=== PATIENT | female | born 1970 | race Caucasian/White ===

== ENCOUNTER → 2017-09-06 | Outpatient (CLI) | payer OTHER ==
[~2017-09-06] MED LIST: AZIT500 PO; Aspirin EC81 MG PO; CLON2 PO; CODACE30; CYCL10 PO; DILT180; DIPH50 PO; DULO30; ESCI20 PO; FURO40; GUAI120S1 PO; HYDACE5 PO; IBUP400 PO; IBUP600 PO; LORA2 PO; MELA3 PO; NAPR500 PO; OMEP20ER PO; PENVK500; POTCHL20ER; PRENZ; Questran4 GM GT; XYZAL PO; Zithromax250 MG PO; [UNRECOGNIZED DRUG - OTHER] PO
== END ==
LOC: PLD 13:40 → LAB SHORT 13:40
DX: L91.8 Other hypertrophic disorders of the skin (principal)
CPT/HCPCS: 88305

== ENCOUNTER 2021-05-22 20:38 | Emergency (ER) | payer OTHER ==
[~2021-05-22] VITALS: Ht 162.6 cm; Wt 171.0 kg
[2021-05-22] MEDS ORDERED: CYCL10 PO (22:18)
[2021-05-22] MEDS ORDERED: LIDO700A20 TOP (22:18)
== END 2021-05-22 22:29 | disposition home or self-care (01) ==
LOC: ER 20:38
DX: S39.012A Strain of muscle, fascia and tendon of lower back, initial encounter (principal); M54.16 Radiculopathy, lumbar region; I10 Essential (primary) hypertension; G47.30 Sleep apnea, unspecified; Z79.82 Long term (current) use of aspirin; Z79.899 Other long term (current) drug therapy; X58.XXXA Exposure to other specified factors, initial encounter
CPT/HCPCS: 96372; 99283-25; J1885

== ENCOUNTER → 2022-01-15 | Outpatient (CLI) | payer OTHER ==
[~2022-01-15] MED LIST changes: +LIDO700A20 TOP
== END | disposition home or self-care (01) ==
LOC: LAB SHORT 12:15 → LAB 12:15
DX: L08.9 Local infection of the skin and subcutaneous tissue, unspecified (principal)
CPT/HCPCS: 87070; 87075; 87147; 87205

== ENCOUNTER 2022-02-02 10:51 | Day surgery (SDC) | payer OTHER | END 2022-02-02 23:16 | disposition home or self-care (01) | LOC: WOUND 10:51 | DX: L03.115 Cellulitis of right lower limb (principal); L03.116 Cellulitis of left lower limb; I87.313 Chronic venous hypertension (idiopathic) with ulcer of bilateral lower extremity; L97.822 Non-pressure chronic ulcer of other part of left lower leg with fat layer exposed; L97.812 Non-pressure chronic ulcer of other part of right lower leg with fat layer exposed; E66.01 Morbid (severe) obesity due to excess calories; E11.51 Type 2 diabetes mellitus with diabetic peripheral angiopathy without gangrene | CPT/HCPCS: A9270; G0463 ==

== ENCOUNTER 2022-02-04 08:43 | Day surgery (SDC) | payer OTHER | END 2022-02-04 22:58 | disposition home or self-care (01) | LOC: WOUND 08:43 | DX: L03.115 Cellulitis of right lower limb (principal); L03.116 Cellulitis of left lower limb; I87.313 Chronic venous hypertension (idiopathic) with ulcer of bilateral lower extremity; I73.9 Peripheral vascular disease, unspecified; L97.822 Non-pressure chronic ulcer of other part of left lower leg with fat layer exposed; L97.812 Non-pressure chronic ulcer of other part of right lower leg with fat layer exposed ==

== ENCOUNTER 2022-02-06 01:16 | Day surgery (SDC) | payer OTHER | END 2022-02-06 22:57 | disposition home or self-care (01) | LOC: WOUND | DX: I87.313 Chronic venous hypertension (idiopathic) with ulcer of bilateral lower extremity (principal); L97.822 Non-pressure chronic ulcer of other part of left lower leg with fat layer exposed; L97.812 Non-pressure chronic ulcer of other part of right lower leg with fat layer exposed; I73.9 Peripheral vascular disease, unspecified; L03.115 Cellulitis of right lower limb; L03.116 Cellulitis of left lower limb ==

== ENCOUNTER 2022-02-11 06:28 | Day surgery (SDC) | payer OTHER | END 2022-02-11 23:29 | disposition home or self-care (01) | LOC: WOUND 06:28 | DX: I87.313 Chronic venous hypertension (idiopathic) with ulcer of bilateral lower extremity (principal); L97.822 Non-pressure chronic ulcer of other part of left lower leg with fat layer exposed; L97.812 Non-pressure chronic ulcer of other part of right lower leg with fat layer exposed; I73.9 Peripheral vascular disease, unspecified; L03.115 Cellulitis of right lower limb; L03.116 Cellulitis of left lower limb | CPT/HCPCS: G0463 ==

== ENCOUNTER 2022-02-20 00:16 | Day surgery (SDC) | payer OTHER | END 2022-02-20 23:22 | disposition home or self-care (01) | LOC: WOUND | DX: L03.115 Cellulitis of right lower limb (principal); L03.116 Cellulitis of left lower limb; I87.313 Chronic venous hypertension (idiopathic) with ulcer of bilateral lower extremity; I73.9 Peripheral vascular disease, unspecified; L97.822 Non-pressure chronic ulcer of other part of left lower leg with fat layer exposed; L97.812 Non-pressure chronic ulcer of other part of right lower leg with fat layer exposed ==

== ENCOUNTER 2022-03-06 14:50 | Day surgery (SDC) | payer OTHER | END 2022-03-07 00:31 | disposition home or self-care (01) | LOC: WOUND 14:50 | DX: I87.313 Chronic venous hypertension (idiopathic) with ulcer of bilateral lower extremity (principal); L97.822 Non-pressure chronic ulcer of other part of left lower leg with fat layer exposed; L97.812 Non-pressure chronic ulcer of other part of right lower leg with fat layer exposed; L03.115 Cellulitis of right lower limb; L03.116 Cellulitis of left lower limb; I73.9 Peripheral vascular disease, unspecified ==

== ENCOUNTER 2022-03-09 00:57 | Day surgery (SDC) | payer OTHER | END 2022-03-09 22:56 | disposition home or self-care (01) | LOC: WOUND 00:57 | DX: I87.313 Chronic venous hypertension (idiopathic) with ulcer of bilateral lower extremity (principal); E11.622 Type 2 diabetes mellitus with other skin ulcer; L97.822 Non-pressure chronic ulcer of other part of left lower leg with fat layer exposed; L97.812 Non-pressure chronic ulcer of other part of right lower leg with fat layer exposed; L03.116 Cellulitis of left lower limb; L03.115 Cellulitis of right lower limb; I73.9 Peripheral vascular disease, unspecified; E66.01 Morbid (severe) obesity due to excess calories; G47.30 Sleep apnea, unspecified; Z68.44 Body mass index [BMI] 60.0-69.9, adult | CPT/HCPCS: G0463 ==

== ENCOUNTER 2022-03-13 12:58 | Day surgery (SDC) | payer OTHER | END 2022-03-13 23:59 | disposition home or self-care (01) | LOC: WOUND 12:58 | DX: I87.313 Chronic venous hypertension (idiopathic) with ulcer of bilateral lower extremity (principal); L97.822 Non-pressure chronic ulcer of other part of left lower leg with fat layer exposed; L97.812 Non-pressure chronic ulcer of other part of right lower leg with fat layer exposed; L03.115 Cellulitis of right lower limb; L03.116 Cellulitis of left lower limb; I73.9 Peripheral vascular disease, unspecified ==

== ENCOUNTER 2022-03-18 13:31 | Day surgery (SDC) | payer OTHER | END 2022-03-18 22:53 | disposition home or self-care (01) | LOC: WOUND 13:31 | DX: I87.313 Chronic venous hypertension (idiopathic) with ulcer of bilateral lower extremity (principal); L97.822 Non-pressure chronic ulcer of other part of left lower leg with fat layer exposed; L97.812 Non-pressure chronic ulcer of other part of right lower leg with fat layer exposed; L03.115 Cellulitis of right lower limb; L03.116 Cellulitis of left lower limb; I73.9 Peripheral vascular disease, unspecified ==

== ENCOUNTER 2022-03-23 02:06 | Day surgery (SDC) | payer OTHER | END 2022-03-23 23:23 | disposition home or self-care (01) | LOC: WOUND 02:06 | DX: I87.313 Chronic venous hypertension (idiopathic) with ulcer of bilateral lower extremity (principal); L97.822 Non-pressure chronic ulcer of other part of left lower leg with fat layer exposed; L97.812 Non-pressure chronic ulcer of other part of right lower leg with fat layer exposed; L03.115 Cellulitis of right lower limb; L03.116 Cellulitis of left lower limb; I73.9 Peripheral vascular disease, unspecified | CPT/HCPCS: A9270 ==

== ENCOUNTER 2022-03-24 13:34 | Day surgery (SDC) | payer OTHER | END 2022-03-24 23:08 | disposition home or self-care (01) | LOC: WOUND 13:34 | DX: I87.313 Chronic venous hypertension (idiopathic) with ulcer of bilateral lower extremity (principal); L97.822 Non-pressure chronic ulcer of other part of left lower leg with fat layer exposed; L97.812 Non-pressure chronic ulcer of other part of right lower leg with fat layer exposed; L03.115 Cellulitis of right lower limb; L03.116 Cellulitis of left lower limb; I73.9 Peripheral vascular disease, unspecified | CPT/HCPCS: A9270 ==

== ENCOUNTER 2022-03-30 02:41 | Day surgery (SDC) | payer OTHER | END 2022-03-30 23:09 | disposition home or self-care (01) | LOC: WOUND 02:41 | DX: L03.116 Cellulitis of left lower limb (principal); L03.115 Cellulitis of right lower limb; L97.812 Non-pressure chronic ulcer of other part of right lower leg with fat layer exposed; L97.822 Non-pressure chronic ulcer of other part of left lower leg with fat layer exposed; I87.313 Chronic venous hypertension (idiopathic) with ulcer of bilateral lower extremity; E11.622 Type 2 diabetes mellitus with other skin ulcer; E66.01 Morbid (severe) obesity due to excess calories | CPT/HCPCS: G0463 ==

== ENCOUNTER 2022-04-06 00:36 | Day surgery (SDC) | payer OTHER | END 2022-04-06 22:47 | disposition home or self-care (01) | LOC: WOUND 00:36 | DX: E11.622 Type 2 diabetes mellitus with other skin ulcer (principal); I87.313 Chronic venous hypertension (idiopathic) with ulcer of bilateral lower extremity; L97.822 Non-pressure chronic ulcer of other part of left lower leg with fat layer exposed; L97.812 Non-pressure chronic ulcer of other part of right lower leg with fat layer exposed; L03.115 Cellulitis of right lower limb; L03.116 Cellulitis of left lower limb; I73.9 Peripheral vascular disease, unspecified; E66.9 Obesity, unspecified; G47.30 Sleep apnea, unspecified; Z68.44 Body mass index [BMI] 60.0-69.9, adult | CPT/HCPCS: A9270; G0463 ==

== ENCOUNTER 2022-04-13 02:59 | Day surgery (SDC) | payer OTHER | END 2022-04-13 22:55 | disposition home or self-care (01) | LOC: WOUND 02:59 | DX: E11.622 Type 2 diabetes mellitus with other skin ulcer (principal); L97.812 Non-pressure chronic ulcer of other part of right lower leg with fat layer exposed; L97.822 Non-pressure chronic ulcer of other part of left lower leg with fat layer exposed; L03.115 Cellulitis of right lower limb; L03.116 Cellulitis of left lower limb; I87.313 Chronic venous hypertension (idiopathic) with ulcer of bilateral lower extremity; E66.01 Morbid (severe) obesity due to excess calories; G47.30 Sleep apnea, unspecified; E11.51 Type 2 diabetes mellitus with diabetic peripheral angiopathy without gangrene; Z68.44 Body mass index [BMI] 60.0-69.9, adult | CPT/HCPCS: A9270; G0463 ==

== ENCOUNTER 2022-04-20 01:38 | Day surgery (SDC) | payer OTHER | END 2022-04-20 23:35 | disposition home or self-care (01) | LOC: WOUND 01:38 | DX: L03.115 Cellulitis of right lower limb (principal); I87.2 Venous insufficiency (chronic) (peripheral); L97.812 Non-pressure chronic ulcer of other part of right lower leg with fat layer exposed; L97.822 Non-pressure chronic ulcer of other part of left lower leg with fat layer exposed; L03.116 Cellulitis of left lower limb; I87.313 Chronic venous hypertension (idiopathic) with ulcer of bilateral lower extremity; I73.9 Peripheral vascular disease, unspecified | CPT/HCPCS: A9270; G0463 ==

== ENCOUNTER 2022-07-17 07:36 | Day surgery (SDC) | payer OTHER | END 2022-07-18 22:44 | disposition home or self-care (01) | LOC: WOUND 07:36 | DX: I87.313 Chronic venous hypertension (idiopathic) with ulcer of bilateral lower extremity (principal); L97.822 Non-pressure chronic ulcer of other part of left lower leg with fat layer exposed; L97.812 Non-pressure chronic ulcer of other part of right lower leg with fat layer exposed; L03.115 Cellulitis of right lower limb; L03.116 Cellulitis of left lower limb | CPT/HCPCS: G0463 ==

== ENCOUNTER 2022-07-20 09:00 | Day surgery (SDC) | payer OTHER | END 2022-07-20 22:45 | disposition home or self-care (01) | LOC: WOUND 09:00 | DX: I87.313 Chronic venous hypertension (idiopathic) with ulcer of bilateral lower extremity (principal); L97.822 Non-pressure chronic ulcer of other part of left lower leg with fat layer exposed; L97.812 Non-pressure chronic ulcer of other part of right lower leg with fat layer exposed; L03.115 Cellulitis of right lower limb; L03.116 Cellulitis of left lower limb; I73.9 Peripheral vascular disease, unspecified | CPT/HCPCS: A9270; G0463 ==

== ENCOUNTER 2022-07-24 00:14 | Day surgery (SDC) | payer OTHER | END 2022-07-24 23:15 | disposition home or self-care (01) | LOC: WOUND 00:14 | DX: L03.115 Cellulitis of right lower limb (principal); L03.116 Cellulitis of left lower limb; I87.313 Chronic venous hypertension (idiopathic) with ulcer of bilateral lower extremity; L97.812 Non-pressure chronic ulcer of other part of right lower leg with fat layer exposed; L97.822 Non-pressure chronic ulcer of other part of left lower leg with fat layer exposed; I73.9 Peripheral vascular disease, unspecified ==

== ENCOUNTER 2022-07-31 01:51 | Day surgery (SDC) | payer OTHER | END 2022-07-31 23:10 | disposition home or self-care (01) | LOC: WOUND 01:51 | DX: I87.313 Chronic venous hypertension (idiopathic) with ulcer of bilateral lower extremity (principal); I73.9 Peripheral vascular disease, unspecified; L97.822 Non-pressure chronic ulcer of other part of left lower leg with fat layer exposed; L97.812 Non-pressure chronic ulcer of other part of right lower leg with fat layer exposed; L03.115 Cellulitis of right lower limb; L03.116 Cellulitis of left lower limb | CPT/HCPCS: A9270; G0463 ==

== ENCOUNTER 2023-01-08 01:01 | Day surgery (SDC) | payer OTHER ==
[~2023-01-08 01:01] MED LIST changes: +Robaxin750 MG PO
== END 2023-01-08 23:06 | disposition home or self-care (01) ==
LOC: WOUND 01:01
DX: L02.415 Cutaneous abscess of right lower limb (principal); E66.01 Morbid (severe) obesity due to excess calories; G47.00 Insomnia, unspecified; Z68.44 Body mass index [BMI] 60.0-69.9, adult; L03.115 Cellulitis of right lower limb; L03.116 Cellulitis of left lower limb; I87.313 Chronic venous hypertension (idiopathic) with ulcer of bilateral lower extremity; S81.801D Unspecified open wound, right lower leg, subsequent encounter; S81.802D Unspecified open wound, left lower leg, subsequent encounter; I87.2 Venous insufficiency (chronic) (peripheral); R60.0 Localized edema
CPT/HCPCS: A9270; G0463

== ENCOUNTER 2023-01-11 09:35 | Day surgery (SDC) | payer OTHER | END 2023-01-11 22:40 | disposition home or self-care (01) | LOC: WOUND 09:35 | DX: L03.116 Cellulitis of left lower limb (principal); I87.313 Chronic venous hypertension (idiopathic) with ulcer of bilateral lower extremity; S81.801D Unspecified open wound, right lower leg, subsequent encounter; S81.802D Unspecified open wound, left lower leg, subsequent encounter; L02.415 Cutaneous abscess of right lower limb; L03.115 Cellulitis of right lower limb; I87.2 Venous insufficiency (chronic) (peripheral); R60.0 Localized edema | CPT/HCPCS: A9270 ==

== ENCOUNTER 2023-01-13 02:36 | Day surgery (SDC) | payer OTHER | END 2023-01-13 23:08 | disposition home or self-care (01) | LOC: WOUND | DX: L02.415 Cutaneous abscess of right lower limb (principal); L03.116 Cellulitis of left lower limb; L03.115 Cellulitis of right lower limb; I87.313 Chronic venous hypertension (idiopathic) with ulcer of bilateral lower extremity; S81.801D Unspecified open wound, right lower leg, subsequent encounter; S81.802D Unspecified open wound, left lower leg, subsequent encounter; I87.2 Venous insufficiency (chronic) (peripheral); R60.0 Localized edema | CPT/HCPCS: A9270 ==

== ENCOUNTER 2023-01-15 00:37 | Day surgery (SDC) | payer OTHER | END 2023-01-15 22:52 | disposition home or self-care (01) | LOC: WOUND 00:37 | DX: L02.415 Cutaneous abscess of right lower limb (principal); L03.116 Cellulitis of left lower limb; L03.115 Cellulitis of right lower limb; I87.313 Chronic venous hypertension (idiopathic) with ulcer of bilateral lower extremity; S81.801D Unspecified open wound, right lower leg, subsequent encounter; S81.802D Unspecified open wound, left lower leg, subsequent encounter; X58.XXXD Exposure to other specified factors, subsequent encounter; I87.2 Venous insufficiency (chronic) (peripheral); R60.0 Localized edema; E66.01 Morbid (severe) obesity due to excess calories; G47.30 Sleep apnea, unspecified; E11.9 Type 2 diabetes mellitus without complications | CPT/HCPCS: A9270; G0463 ==

== ENCOUNTER 2023-01-18 08:00 | Day surgery (SDC) | payer OTHER | END 2023-01-18 23:59 | disposition home or self-care (01) | LOC: WOUND 08:00 | DX: I87.313 Chronic venous hypertension (idiopathic) with ulcer of bilateral lower extremity (principal); L02.415 Cutaneous abscess of right lower limb; L03.116 Cellulitis of left lower limb; L03.115 Cellulitis of right lower limb; S81.801D Unspecified open wound, right lower leg, subsequent encounter; S81.802D Unspecified open wound, left lower leg, subsequent encounter; X58.XXXD Exposure to other specified factors, subsequent encounter | CPT/HCPCS: G0463 ==

== ENCOUNTER 2023-01-20 05:01 | Day surgery (SDC) | payer OTHER | END 2023-01-20 22:44 | disposition home or self-care (01) | LOC: WOUND 05:01 | DX: L02.415 Cutaneous abscess of right lower limb (principal); E66.01 Morbid (severe) obesity due to excess calories; Z68.44 Body mass index [BMI] 60.0-69.9, adult; I87.313 Chronic venous hypertension (idiopathic) with ulcer of bilateral lower extremity; S81.801D Unspecified open wound, right lower leg, subsequent encounter; S81.802D Unspecified open wound, left lower leg, subsequent encounter; I87.2 Venous insufficiency (chronic) (peripheral); R60.0 Localized edema | CPT/HCPCS: G0463 ==

== ENCOUNTER 2023-01-22 02:23 | Day surgery (SDC) | payer OTHER | END 2023-01-22 22:59 | disposition home or self-care (01) | LOC: WOUND 02:23 | DX: S81.801D Unspecified open wound, right lower leg, subsequent encounter (principal) | CPT/HCPCS: G0463 ==

== ENCOUNTER 2023-01-25 00:46 | Day surgery (SDC) | payer OTHER | END 2023-01-25 22:45 | disposition home or self-care (01) | LOC: WOUND 00:46 | DX: I87.313 Chronic venous hypertension (idiopathic) with ulcer of bilateral lower extremity (principal); S81.801D Unspecified open wound, right lower leg, subsequent encounter; S81.802D Unspecified open wound, left lower leg, subsequent encounter; X58.XXXD Exposure to other specified factors, subsequent encounter; L02.415 Cutaneous abscess of right lower limb; L03.116 Cellulitis of left lower limb; L03.115 Cellulitis of right lower limb; I87.2 Venous insufficiency (chronic) (peripheral); R60.0 Localized edema | CPT/HCPCS: G0463 ==

== ENCOUNTER 2023-01-27 02:43 | Day surgery (SDC) | payer OTHER | END 2023-01-27 22:52 | disposition home or self-care (01) | LOC: WOUND 02:43 | DX: I87.313 Chronic venous hypertension (idiopathic) with ulcer of bilateral lower extremity (principal); S81.801D Unspecified open wound, right lower leg, subsequent encounter; S81.802D Unspecified open wound, left lower leg, subsequent encounter; L02.415 Cutaneous abscess of right lower limb; L03.116 Cellulitis of left lower limb; L03.115 Cellulitis of right lower limb; I87.2 Venous insufficiency (chronic) (peripheral); R60.0 Localized edema | CPT/HCPCS: G0463 ==

== ENCOUNTER 2023-02-01 01:35 | Day surgery (SDC) | payer OTHER | END 2023-02-01 22:53 | disposition home or self-care (01) | LOC: WOUND 01:35 | DX: S81.801D Unspecified open wound, right lower leg, subsequent encounter (principal); S81.802D Unspecified open wound, left lower leg, subsequent encounter; X58.XXXD Exposure to other specified factors, subsequent encounter; I87.313 Chronic venous hypertension (idiopathic) with ulcer of bilateral lower extremity; L02.415 Cutaneous abscess of right lower limb; L03.116 Cellulitis of left lower limb; L03.115 Cellulitis of right lower limb; I87.2 Venous insufficiency (chronic) (peripheral); R60.0 Localized edema | CPT/HCPCS: G0463 ==

== ENCOUNTER 2023-02-05 00:50 | Day surgery (SDC) | payer OTHER | END 2023-02-05 22:44 | disposition home or self-care (01) | LOC: WOUND 00:50 | DX: I87.313 Chronic venous hypertension (idiopathic) with ulcer of bilateral lower extremity (principal); L03.116 Cellulitis of left lower limb; L03.115 Cellulitis of right lower limb; L02.415 Cutaneous abscess of right lower limb; E66.01 Morbid (severe) obesity due to excess calories; G47.30 Sleep apnea, unspecified; E11.9 Type 2 diabetes mellitus without complications; L89.893 Pressure ulcer of other site, stage 3 | CPT/HCPCS: A9270; G0463 ==

== ENCOUNTER 2023-02-24 04:44 | Day surgery (SDC) | payer OTHER | END 2023-02-24 22:57 | disposition home or self-care (01) | LOC: WOUND 04:44 | DX: L89.893 Pressure ulcer of other site, stage 3 (principal); I87.313 Chronic venous hypertension (idiopathic) with ulcer of bilateral lower extremity; S81.801D Unspecified open wound, right lower leg, subsequent encounter; S81.802D Unspecified open wound, left lower leg, subsequent encounter; L02.415 Cutaneous abscess of right lower limb; L03.116 Cellulitis of left lower limb; L03.115 Cellulitis of right lower limb; I87.2 Venous insufficiency (chronic) (peripheral); R60.0 Localized edema | CPT/HCPCS: A9270; G0463 ==

== ENCOUNTER 2023-03-04 03:03 | Day surgery (SDC) | payer OTHER | END 2023-03-04 23:05 | disposition home or self-care (01) | LOC: WOUND 03:03 | DX: I87.313 Chronic venous hypertension (idiopathic) with ulcer of bilateral lower extremity (principal); L97.929 Non-pressure chronic ulcer of unspecified part of left lower leg with unspecified severity; L97.919 Non-pressure chronic ulcer of unspecified part of right lower leg with unspecified severity; S81.801D Unspecified open wound, right lower leg, subsequent encounter; S81.802D Unspecified open wound, left lower leg, subsequent encounter; L02.415 Cutaneous abscess of right lower limb; L03.116 Cellulitis of left lower limb; L03.115 Cellulitis of right lower limb; I87.2 Venous insufficiency (chronic) (peripheral); R60.0 Localized edema; X58.XXXD Exposure to other specified factors, subsequent encounter | CPT/HCPCS: 87070; 87077; 87147; 87186; 87205; A9270; G0463 ==

== ENCOUNTER 2023-03-12 00:27 | Day surgery (SDC) | payer OTHER | END 2023-03-12 22:47 | disposition home or self-care (01) | LOC: WOUND 00:27 | DX: L03.116 Cellulitis of left lower limb (principal); L03.115 Cellulitis of right lower limb; I87.313 Chronic venous hypertension (idiopathic) with ulcer of bilateral lower extremity; S81.801D Unspecified open wound, right lower leg, subsequent encounter; S81.802D Unspecified open wound, left lower leg, subsequent encounter; L02.415 Cutaneous abscess of right lower limb; I87.2 Venous insufficiency (chronic) (peripheral); R60.0 Localized edema | CPT/HCPCS: A9270; G0463 ==

== ENCOUNTER 2023-03-19 02:26 | Day surgery (SDC) | payer OTHER | END 2023-03-19 22:43 | disposition home or self-care (01) | LOC: WOUND 02:26 | DX: L03.116 Cellulitis of left lower limb (principal); L03.115 Cellulitis of right lower limb; I87.313 Chronic venous hypertension (idiopathic) with ulcer of bilateral lower extremity; S81.801D Unspecified open wound, right lower leg, subsequent encounter; S81.802D Unspecified open wound, left lower leg, subsequent encounter; L02.415 Cutaneous abscess of right lower limb; I87.2 Venous insufficiency (chronic) (peripheral); R60.0 Localized edema | CPT/HCPCS: A9270; G0463 ==

== ENCOUNTER 2023-03-26 05:06 | Day surgery (SDC) | payer OTHER | END 2023-03-26 22:40 | disposition home or self-care (01) | LOC: WOUND 05:06 | DX: I87.313 Chronic venous hypertension (idiopathic) with ulcer of bilateral lower extremity (principal); E66.01 Morbid (severe) obesity due to excess calories; G47.30 Sleep apnea, unspecified; L03.116 Cellulitis of left lower limb; L03.115 Cellulitis of right lower limb; L02.415 Cutaneous abscess of right lower limb | CPT/HCPCS: A9270; G0463 ==

== ENCOUNTER 2023-04-02 03:04 | Day surgery (SDC) | payer OTHER | END 2023-04-02 23:10 | disposition home or self-care (01) | LOC: WOUND 03:04 | DX: I87.313 Chronic venous hypertension (idiopathic) with ulcer of bilateral lower extremity (principal); S81.801D Unspecified open wound, right lower leg, subsequent encounter; S81.802D Unspecified open wound, left lower leg, subsequent encounter; L02.415 Cutaneous abscess of right lower limb; L03.116 Cellulitis of left lower limb; L03.115 Cellulitis of right lower limb; I87.2 Venous insufficiency (chronic) (peripheral); R60.0 Localized edema | CPT/HCPCS: A9270; G0463 ==

== ENCOUNTER 2023-04-09 04:50 | Day surgery (SDC) | payer OTHER | END 2023-04-09 22:50 | disposition home or self-care (01) | LOC: WOUND 04:50 | DX: I87.313 Chronic venous hypertension (idiopathic) with ulcer of bilateral lower extremity (principal); L97.919 Non-pressure chronic ulcer of unspecified part of right lower leg with unspecified severity; L97.929 Non-pressure chronic ulcer of unspecified part of left lower leg with unspecified severity; L02.415 Cutaneous abscess of right lower limb; S81.801D Unspecified open wound, right lower leg, subsequent encounter; S81.802D Unspecified open wound, left lower leg, subsequent encounter; L03.115 Cellulitis of right lower limb; R60.0 Localized edema; E11.9 Type 2 diabetes mellitus without complications; G47.30 Sleep apnea, unspecified; E66.01 Morbid (severe) obesity due to excess calories; Z68.45 Body mass index [BMI] 70 or greater, adult; X58.XXXD Exposure to other specified factors, subsequent encounter | CPT/HCPCS: A9270 ==

== ENCOUNTER 2023-04-16 01:49 | Day surgery (SDC) | payer OTHER | END 2023-04-16 22:46 | disposition home or self-care (01) | LOC: WOUND 01:49 | DX: L03.116 Cellulitis of left lower limb (principal); L03.115 Cellulitis of right lower limb; I89.0 Lymphedema, not elsewhere classified; I87.313 Chronic venous hypertension (idiopathic) with ulcer of bilateral lower extremity; S81.801D Unspecified open wound, right lower leg, subsequent encounter; L02.415 Cutaneous abscess of right lower limb; I87.2 Venous insufficiency (chronic) (peripheral); R60.0 Localized edema | CPT/HCPCS: A9270; G0463 ==

== ENCOUNTER 2023-04-23 02:34 | Day surgery (SDC) | payer OTHER | END 2023-04-23 22:35 | disposition home or self-care (01) | LOC: WOUND 02:34 | DX: L02.415 Cutaneous abscess of right lower limb (principal); S81.801D Unspecified open wound, right lower leg, subsequent encounter; S81.802D Unspecified open wound, left lower leg, subsequent encounter; S71.109A Unspecified open wound, unspecified thigh, initial encounter; R60.0 Localized edema; I83.009 Varicose veins of unspecified lower extremity with ulcer of unspecified site | CPT/HCPCS: A9270; G0463 ==

== ENCOUNTER 2023-04-28 11:20 | Day surgery (SDC) | payer OTHER | END 2023-04-28 22:47 | disposition home or self-care (01) | LOC: WOUND 11:20 | DX: L03.116 Cellulitis of left lower limb (principal); L03.115 Cellulitis of right lower limb; I89.0 Lymphedema, not elsewhere classified; L89.322 Pressure ulcer of left buttock, stage 2; L89.892 Pressure ulcer of other site, stage 2; S81.801D Unspecified open wound, right lower leg, subsequent encounter; S81.802D Unspecified open wound, left lower leg, subsequent encounter; S71.109A Unspecified open wound, unspecified thigh, initial encounter; L02.415 Cutaneous abscess of right lower limb; I87.2 Venous insufficiency (chronic) (peripheral) | CPT/HCPCS: 87070; 87077; 87186; 87205; A9270; G0463 ==

== ENCOUNTER 2023-05-07 03:53 | Day surgery (SDC) | payer OTHER | END 2023-05-07 22:50 | disposition home or self-care (01) | LOC: WOUND 03:53 | DX: I83.009 Varicose veins of unspecified lower extremity with ulcer of unspecified site (principal); L03.116 Cellulitis of left lower limb; E66.01 Morbid (severe) obesity due to excess calories; G47.30 Sleep apnea, unspecified; I89.0 Lymphedema, not elsewhere classified; L02.415 Cutaneous abscess of right lower limb | CPT/HCPCS: G0463 ==

== ENCOUNTER 2023-05-14 03:12 | Day surgery (SDC) | payer OTHER | END 2023-05-14 23:01 | disposition home or self-care (01) | LOC: WOUND 03:12 | DX: L03.116 Cellulitis of left lower limb (principal); I89.0 Lymphedema, not elsewhere classified; S81.801D Unspecified open wound, right lower leg, subsequent encounter; S81.802D Unspecified open wound, left lower leg, subsequent encounter; L02.415 Cutaneous abscess of right lower limb; I87.2 Venous insufficiency (chronic) (peripheral); R60.0 Localized edema; I83.009 Varicose veins of unspecified lower extremity with ulcer of unspecified site; S71.109D Unspecified open wound, unspecified thigh, subsequent encounter | CPT/HCPCS: A9270; G0463 ==

== ENCOUNTER 2023-05-21 03:57 | Day surgery (SDC) | payer OTHER | END 2023-05-21 22:42 | disposition home or self-care (01) | LOC: WOUND 03:57 | DX: L02.415 Cutaneous abscess of right lower limb (principal); S81.801D Unspecified open wound, right lower leg, subsequent encounter; S81.802D Unspecified open wound, left lower leg, subsequent encounter; S71.109D Unspecified open wound, unspecified thigh, subsequent encounter; I87.2 Venous insufficiency (chronic) (peripheral); I83.009 Varicose veins of unspecified lower extremity with ulcer of unspecified site | CPT/HCPCS: A9270; G0463 ==

== ENCOUNTER 2023-05-25 00:37 | Day surgery (SDC) | payer OTHER | END 2023-05-25 22:50 | disposition home or self-care (01) | LOC: WOUND 00:37 | DX: I83.009 Varicose veins of unspecified lower extremity with ulcer of unspecified site (principal); S81.801D Unspecified open wound, right lower leg, subsequent encounter; S81.802D Unspecified open wound, left lower leg, subsequent encounter; S71.109A Unspecified open wound, unspecified thigh, initial encounter; L02.415 Cutaneous abscess of right lower limb; I87.2 Venous insufficiency (chronic) (peripheral); X58.XXXD Exposure to other specified factors, subsequent encounter | CPT/HCPCS: A9270; G0463 ==

== ENCOUNTER 2023-05-28 03:09 | Day surgery (SDC) | payer OTHER | END 2023-05-28 23:58 | disposition home or self-care (01) | LOC: WOUND 03:09 | DX: L03.116 Cellulitis of left lower limb (principal); I89.0 Lymphedema, not elsewhere classified; S81.801D Unspecified open wound, right lower leg, subsequent encounter; S81.802D Unspecified open wound, left lower leg, subsequent encounter; S71.109A Unspecified open wound, unspecified thigh, initial encounter; I87.2 Venous insufficiency (chronic) (peripheral); L02.415 Cutaneous abscess of right lower limb; R60.0 Localized edema; I83.009 Varicose veins of unspecified lower extremity with ulcer of unspecified site | CPT/HCPCS: A9270 ==

== ENCOUNTER 2023-06-03 01:53 | Day surgery (SDC) | payer OTHER ==
[2023-06-03] MEDS ORDERED: Triamcinolone Acet 0.1% Cream 15 gm ONE (08:11)
[2023-06-03] MEDS ORDERED: Miconazole Nitrate 2% 85 GM PWD ONE (09:09)
== END 2023-06-03 22:50 | disposition home or self-care (01) ==
LOC: WOUND 01:53
DX: L02.415 Cutaneous abscess of right lower limb (principal); I83.009 Varicose veins of unspecified lower extremity with ulcer of unspecified site; S81.801D Unspecified open wound, right lower leg, subsequent encounter; S81.802D Unspecified open wound, left lower leg, subsequent encounter; S71.109D Unspecified open wound, unspecified thigh, subsequent encounter; X58.XXXD Exposure to other specified factors, subsequent encounter; I87.2 Venous insufficiency (chronic) (peripheral)
CPT/HCPCS: A9270

== ENCOUNTER 2023-06-09 13:59 | Day surgery (SDC) | payer OTHER | END 2023-06-09 22:45 | disposition home or self-care (01) | LOC: WOUND 13:59 | DX: S81.801D Unspecified open wound, right lower leg, subsequent encounter (principal); S81.802D Unspecified open wound, left lower leg, subsequent encounter; X58.XXXD Exposure to other specified factors, subsequent encounter; S71.109A Unspecified open wound, unspecified thigh, initial encounter; X58.XXXA Exposure to other specified factors, initial encounter; L02.415 Cutaneous abscess of right lower limb; I87.2 Venous insufficiency (chronic) (peripheral); R60.0 Localized edema; I83.009 Varicose veins of unspecified lower extremity with ulcer of unspecified site | CPT/HCPCS: A9270 ==

== ENCOUNTER 2023-06-11 02:57 | Day surgery (SDC) | payer OTHER | END 2023-06-11 22:59 | disposition home or self-care (01) | LOC: WOUND 02:57 | DX: L03.116 Cellulitis of left lower limb (principal); I89.0 Lymphedema, not elsewhere classified; E66.01 Morbid (severe) obesity due to excess calories; Z68.45 Body mass index [BMI] 70 or greater, adult; S81.801D Unspecified open wound, right lower leg, subsequent encounter; S81.802D Unspecified open wound, left lower leg, subsequent encounter; S71.109A Unspecified open wound, unspecified thigh, initial encounter; L02.415 Cutaneous abscess of right lower limb; I87.2 Venous insufficiency (chronic) (peripheral); I83.009 Varicose veins of unspecified lower extremity with ulcer of unspecified site ==

== ENCOUNTER 2023-06-16 01:31 | Day surgery (SDC) | payer OTHER | END 2023-06-16 23:00 | disposition home or self-care (01) | LOC: WOUND 01:31 | DX: S81.801D Unspecified open wound, right lower leg, subsequent encounter (principal); S81.802D Unspecified open wound, left lower leg, subsequent encounter; S71.109D Unspecified open wound, unspecified thigh, subsequent encounter; L02.415 Cutaneous abscess of right lower limb; I87.2 Venous insufficiency (chronic) (peripheral); R60.0 Localized edema; I83.009 Varicose veins of unspecified lower extremity with ulcer of unspecified site ==

== ENCOUNTER 2023-06-18 02:45 | Day surgery (SDC) | payer OTHER | END 2023-06-18 22:49 | disposition home or self-care (01) | LOC: WOUND | DX: I83.009 Varicose veins of unspecified lower extremity with ulcer of unspecified site (principal); S81.801D Unspecified open wound, right lower leg, subsequent encounter; S81.802D Unspecified open wound, left lower leg, subsequent encounter; S71.109D Unspecified open wound, unspecified thigh, subsequent encounter; L02.415 Cutaneous abscess of right lower limb; I87.2 Venous insufficiency (chronic) (peripheral); X58.XXXD Exposure to other specified factors, subsequent encounter | CPT/HCPCS: G0463 ==

== ENCOUNTER 2023-06-21 09:34 | Day surgery (SDC) | payer OTHER | END 2023-06-21 23:01 | disposition home or self-care (01) | LOC: WOUND 09:34 | DX: L02.415 Cutaneous abscess of right lower limb (principal); S81.801D Unspecified open wound, right lower leg, subsequent encounter; S81.802D Unspecified open wound, left lower leg, subsequent encounter; X58.XXXD Exposure to other specified factors, subsequent encounter; S71.109A Unspecified open wound, unspecified thigh, initial encounter; X58.XXXA Exposure to other specified factors, initial encounter; I87.2 Venous insufficiency (chronic) (peripheral); I83.009 Varicose veins of unspecified lower extremity with ulcer of unspecified site | CPT/HCPCS: G0463 ==

== ENCOUNTER 2023-06-25 01:15 | Day surgery (SDC) | payer OTHER | END 2023-06-25 22:51 | disposition home or self-care (01) | LOC: WOUND 01:15 | DX: L03.116 Cellulitis of left lower limb (principal); I89.0 Lymphedema, not elsewhere classified; E66.01 Morbid (severe) obesity due to excess calories; G47.30 Sleep apnea, unspecified; S81.801D Unspecified open wound, right lower leg, subsequent encounter; S81.802D Unspecified open wound, left lower leg, subsequent encounter; S71.109D Unspecified open wound, unspecified thigh, subsequent encounter; I83.009 Varicose veins of unspecified lower extremity with ulcer of unspecified site | CPT/HCPCS: G0463 ==

== ENCOUNTER 2023-06-28 01:58 | Day surgery (SDC) | payer OTHER | END 2023-06-28 22:55 | disposition home or self-care (01) | LOC: WOUND 01:58 | DX: I83.009 Varicose veins of unspecified lower extremity with ulcer of unspecified site (principal); I87.2 Venous insufficiency (chronic) (peripheral); L02.415 Cutaneous abscess of right lower limb; S81.802D Unspecified open wound, left lower leg, subsequent encounter; S81.801D Unspecified open wound, right lower leg, subsequent encounter; S71.109A Unspecified open wound, unspecified thigh, initial encounter; X58.XXXD Exposure to other specified factors, subsequent encounter | CPT/HCPCS: G0463 ==

== ENCOUNTER 2023-07-02 00:26 | Day surgery (SDC) | payer OTHER | END 2023-07-02 23:43 | disposition home or self-care (01) | LOC: WOUND 00:26 | DX: L03.116 Cellulitis of left lower limb (principal); E66.01 Morbid (severe) obesity due to excess calories; G47.30 Sleep apnea, unspecified; I89.0 Lymphedema, not elsewhere classified; S81.802D Unspecified open wound, left lower leg, subsequent encounter; S81.801D Unspecified open wound, right lower leg, subsequent encounter; I83.009 Varicose veins of unspecified lower extremity with ulcer of unspecified site; I87.2 Venous insufficiency (chronic) (peripheral); X58.XXXD Exposure to other specified factors, subsequent encounter | CPT/HCPCS: G0463 ==

== ENCOUNTER 2023-07-05 02:48 | Day surgery (SDC) | payer OTHER | END 2023-07-05 23:38 | disposition home or self-care (01) | LOC: WOUND 02:48 | DX: I83.009 Varicose veins of unspecified lower extremity with ulcer of unspecified site (principal); L02.415 Cutaneous abscess of right lower limb; I87.2 Venous insufficiency (chronic) (peripheral); S81.801D Unspecified open wound, right lower leg, subsequent encounter; S81.802D Unspecified open wound, left lower leg, subsequent encounter; S71.109D Unspecified open wound, unspecified thigh, subsequent encounter; X58.XXXD Exposure to other specified factors, subsequent encounter | CPT/HCPCS: G0463 ==

== ENCOUNTER 2023-07-09 01:19 | Day surgery (SDC) | payer OTHER | END 2023-07-09 22:50 | disposition home or self-care (01) | LOC: WOUND 01:19 | DX: I83.009 Varicose veins of unspecified lower extremity with ulcer of unspecified site (principal); S81.801D Unspecified open wound, right lower leg, subsequent encounter; S81.802D Unspecified open wound, left lower leg, subsequent encounter; L02.415 Cutaneous abscess of right lower limb; I87.2 Venous insufficiency (chronic) (peripheral); X58.XXXD Exposure to other specified factors, subsequent encounter | CPT/HCPCS: G0463 ==

== ENCOUNTER 2023-07-12 02:22 | Day surgery (SDC) | payer OTHER | END 2023-07-12 23:06 | disposition home or self-care (01) | LOC: WOUND 02:22 | DX: S81.802D Unspecified open wound, left lower leg, subsequent encounter (principal); S71.109D Unspecified open wound, unspecified thigh, subsequent encounter; L02.415 Cutaneous abscess of right lower limb; I87.2 Venous insufficiency (chronic) (peripheral); R60.0 Localized edema; I83.009 Varicose veins of unspecified lower extremity with ulcer of unspecified site | CPT/HCPCS: G0463 ==

== ENCOUNTER 2023-07-16 00:42 | Day surgery (SDC) | payer OTHER ==
[2023-07-16] MEDS ORDERED: Miconazole Nitrate 2% 85 GM PWD ONE (08:18)
[2023-07-16] MEDS ORDERED: Triamcinolone Acet 0.1% Cream 15 gm ONE (08:18)
== END 2023-07-16 23:07 | disposition home or self-care (01) ==
LOC: WOUND 00:42
DX: L03.116 Cellulitis of left lower limb (principal); I89.0 Lymphedema, not elsewhere classified; I83.009 Varicose veins of unspecified lower extremity with ulcer of unspecified site; S81.801D Unspecified open wound, right lower leg, subsequent encounter; S81.802D Unspecified open wound, left lower leg, subsequent encounter; L02.415 Cutaneous abscess of right lower limb; E66.01 Morbid (severe) obesity due to excess calories; G47.30 Sleep apnea, unspecified; E11.9 Type 2 diabetes mellitus without complications; X58.XXXD Exposure to other specified factors, subsequent encounter
CPT/HCPCS: A9270; G0463

== ENCOUNTER 2023-07-19 00:11 | Day surgery (SDC) | payer OTHER | END 2023-07-19 23:47 | disposition home or self-care (01) | LOC: WOUND 00:11 | DX: S81.801D Unspecified open wound, right lower leg, subsequent encounter (principal); S81.802D Unspecified open wound, left lower leg, subsequent encounter; S71.109D Unspecified open wound, unspecified thigh, subsequent encounter; L02.415 Cutaneous abscess of right lower limb; I87.2 Venous insufficiency (chronic) (peripheral); R60.0 Localized edema; I83.009 Varicose veins of unspecified lower extremity with ulcer of unspecified site | CPT/HCPCS: G0463 ==

== ENCOUNTER 2023-07-23 01:28 | Day surgery (SDC) | payer OTHER ==
[2023-07-23] MEDS ORDERED: Miconazole Nitrate 2% 85 GM PWD ONE (08:32)
[2023-07-23] MEDS ORDERED: Triamcinolone Acet 0.1% Cream 15 gm ONE (08:32)
[2023-07-23] MEDS ORDERED: FUROSEMIDE20 MG PO (14:21)
[2023-07-23] MEDS ORDERED: EZETIMIBE10 M6 PO (14:21)
[2023-07-23] MEDS ORDERED: K-Dur10 MEQ PO (14:21)
[2023-07-23] MEDS ORDERED: Ventolin/Prove6.7 GM INH (14:21)
[2023-07-23] MEDS ORDERED: PRAMIPEXOLE D0.25 M1 PO (14:21)
[2023-07-23] MEDS ORDERED: BUSPIRONE HCL5 M6 PO (14:22)
[2023-07-23] MEDS ORDERED: ZANAFLEX413 PO (14:22)
[2023-07-23] MEDS ORDERED: VILAZODONE HCL40 MG PO (14:22)
[2023-07-23] MEDS ORDERED: PRED20 PO (14:22)
[2023-07-23] MEDS ORDERED: REXULTI1 MG PO (14:22)
[2023-07-23] MEDS ORDERED: CHOLESTYRAMI239.4 G1 PO (19:59)
[2023-07-23] MEDS ORDERED: Acetaminophen650 M1 PO (19:59)
== END 2023-07-23 23:04 | disposition home or self-care (01) ==
LOC: WOUND 01:28
DX: L03.116 Cellulitis of left lower limb (principal); I89.0 Lymphedema, not elsewhere classified; L89.892 Pressure ulcer of other site, stage 2; E66.01 Morbid (severe) obesity due to excess calories; G47.30 Sleep apnea, unspecified; L02.415 Cutaneous abscess of right lower limb; I87.2 Venous insufficiency (chronic) (peripheral); I83.009 Varicose veins of unspecified lower extremity with ulcer of unspecified site; S81.801D Unspecified open wound, right lower leg, subsequent encounter; S81.802D Unspecified open wound, left lower leg, subsequent encounter; X58.XXXD Exposure to other specified factors, subsequent encounter
CPT/HCPCS: A9270; G0463

== ENCOUNTER 2023-07-23 10:39 | Inpatient (IN) | payer OTHER ==
[~2023-07-23] VITALS: Ht 160 cm; Wt 167.9 kg
[2023-07-23 11:36] LABS: BASOPHILS ABSOLUTE AUTO 0.05 K/mm3 (0.00-0.23); BASOPHILS PERCENT AUTO 0 % (0-2); EOSINOPHILS ABSOLUTE AUTO 0.11 K/mm3 (0.00-0.68); EOSINOPHILS PERCENT AUTO 1 % (0-6); Hematocrit 46.7 % (33.0-51.0); IMMATURE GRAN PERCENT AUTO 0 % (0-1); LYMPHOCYTES ABSOLUTE AUTO 1.69 K/mm3 (0.84-5.20); LYMPHOCYTES PERCENT AUTO 7 % (21-46); MONOCYTES ABSOLUTE AUTO 1.96 K/mm3 (0.16-1.47); MONOCYTES PERCENT AUTO 8 % (4-13); Mean Corpuscular HGB 28.5 pg (26.0-34.0); Mean Corpuscular HGB Conc 32.1 g/dL (31.5-36.5); Mean Corpuscular Volume 89 fL (80-100); Mean Platelet Volume 10.2 fL (9.1-12.4); NEUTROPHILS ABSOLUTE AUTO 20.52 K/mm3 (1.96-9.15); NEUTROPHILS PERCENT AUTO 84 % (41-73); Platelet Count 530 K/mm3 (150-400); RDW Coefficient Variation 14.6 % (11.7-14.2); RDW Standard Deviation 47.5 fL (35.1-46.3); Red Blood Cell Count 5.27 M/mm3 (3.80-5.20); White Blood Cell Count 24.43 K/mm3 (4.00-11.30)
[2023-07-23 12:18] LABS: BASOPHILS PERCENT MAN 0 % (0-2); EOSINOPHILS PERCENT MAN 0 % (0-6); LYMPHOCYTES ABSOLUTE MAN 0.97 K/mm3 (0.84-5.20); LYMPHOCYTES PERCENT MAN 4 % (21-46); MONOCYTES ABSOLUTE MAN 1.95 K/mm3 (0.16-1.47); MONOCYTES PERCENT MAN 8 % (4-13); NEUTROPHILS ABSOLUTE MAN 21.49 K/mm3 (1.96-9.15); SEG NEUTROPHILS PERCENT MAN 88 % (41-73); TOTAL CELLS COUNTED 100
[2023-07-23 13:44] LABS: Albumin, Blood 3.6 g/dL (3.4-5.0); Albumin/Globulin Ratio 0.6 (0.8-1.8); Bilirubin, Total 0.8 mg/dL (0.1-1.0); Bun/Creatinine Ratio 21.9 (12.0-20.0); Calcium, Blood 10.3 mg/dL (8.5-10.1); Creatinine, Blood 2.37 mg/dL (0.40-1.00); Globulin, Blood 6.3 g/dL (2.2-4.0); Potassium, Blood 6.4 mmol/L (3.5-5.5); Total Protein, Blood 9.9 g/dL (6.4-8.2)
[2023-07-23 14:15] LABS: Calcium, Ionized (POC) 1.13 mmol/L (1.10-1.46); Chloride (POC) 105 mmol/L (98-108); Creatinine (POC) 2.7 mg/dL (0.6-1.0); Glucose (ISTAT POC) 126 mg/dL (70-99); Potassium (POC) 6.7 mmol/L (3.5-5.5); Sodium (POC) 129 mmol/L (135-148); Total CO2 (POC) 18 mmol/L (21-32)
[2023-07-23] MEDS ORDERED: EZETIMIBE10 M6 PO (14:21)
[2023-07-23] MEDS ORDERED: PRAMIPEXOLE D0.25 M1 PO (14:21)
[2023-07-23] MEDS ORDERED: FUROSEMIDE20 MG PO (14:21)
[2023-07-23] MEDS ORDERED: Ventolin/Prove6.7 GM INH (14:21)
[2023-07-23] MEDS ORDERED: K-Dur10 MEQ PO (14:21)
[2023-07-23] MEDS ORDERED: PRED20 PO (14:22)
[2023-07-23] MEDS ORDERED: BUSPIRONE HCL5 M6 PO (14:22)
[2023-07-23] MEDS ORDERED: REXULTI1 MG PO (14:22)
[2023-07-23] MEDS ORDERED: VILAZODONE HCL40 MG PO (14:22)
[2023-07-23] MEDS ORDERED: ZANAFLEX413 PO (14:22)
[2023-07-23] MEDS ORDERED: Calcium Gluconate 10% 100 MG/ML INJ IV ONE (14:35)
[2023-07-23] MEDS ORDERED: NS 1,000 ML IV SCH ×2 (14:35→16:45)
[2023-07-23] MEDS ORDERED: Insulin Regular 100 Unit/ML 1ML Dose IV ONE (14:35)
[2023-07-23] MEDS ORDERED: Dextrose 50% 50 ML Vial IV ONE (14:35)
[2023-07-23] MEDS ORDERED: Albuterol 2.5 MG/3 ML VIAL INH SCH (14:35)
[2023-07-23] MEDS ORDERED: Cefepime HCl 2,000 MG in NS 100 ML IV ONE (14:50)
[2023-07-23] MEDS ORDERED: Vancomycin HCL 1,500 MG in NS 265 ML IV ONE (14:50)
[2023-07-23] MEDS ORDERED: Calcium Gluconate 10% 1,000 MG in NS 50 ML IV ONE (15:00)
[2023-07-23] MEDS ORDERED: Dextrose 50% 50 ML Syringe IV ONE (15:05)
[2023-07-23] MEDS ORDERED: Lactated Ringer's 1,000 ML IV SCH (16:30)
[2023-07-23] MEDS ORDERED: FLU VACC QS2023-24(6MOS UP)/PF 60 MCG/0.5 ML SYRINGE IM ONE (16:30)
[2023-07-23] MEDS ORDERED: Acetaminophen 325 MG TABLET PO PRN (16:35)
[2023-07-23 16:40] LABS: Influenza A, PCR NEGATIVE (NEGATIVE); Influenza B, PCR NEGATIVE (NEGATIVE); Resp Syncytial Virus, PCR NEGATIVE (NEGATIVE); SARS-Cov-2 (COVID-19) PCR, MMC NEGATIVE (NEGATIVE)
[2023-07-23 18:52] VITALS: BP 137/63
[2023-07-23 19:21] VITALS: BP 123/55
[2023-07-23] MEDS ORDERED: CHOLESTYRAMI239.4 G1 PO (19:59)
[2023-07-23] MEDS ORDERED: Acetaminophen650 M1 PO (19:59)
--- NOTE | 2023-07-23 20:00 | NUR ---
ASSUMPTION OF CARE: THIS RN ASSUMED CARE OF PT AT APPROX 1900. PT ARRIVED TO PCU JUST PRIOR TO SHIFT CHANGE & REPORT WAS TAKEN FROM PATRICIA ARAIZA. PT ALERT, ORIENTED X4; SITTING UP IN BED, ABLE TO COMMUNICATE NEEDS W/ STAFF. HR 110'S, SINUS TACH ON TELE. BP STABLE, MAP >65. DENIES CHEST PAIN/PRESSURE. SPO2 >95% ON RA, DENIES SOB. LUNG SOUNDS DIM, RESPIRATIONS SHALLOW BUT UNLABORED. PT REQUESTS CPAP FOR NOC, RT NOTIFIED. AFEBRILE. PUREWICK IN PLACE ALTHOUGH PT UNABLE TO VOID THUS FAR. BLE'S WEEPING, REDRESSED BY DAY SHIFT RN'S. SCATTERED ABRASIONS NOTED T/O EXTREMITIES. DENIES PAIN AT THIS TIME. ORIENTED TO ROOM/UNIT/CALL LIGHT. DISCUSSED FIRE IGNITION POLICY, PT DENIES SMOKING/HAVING IGNITION SOURCES PRESENT. CALL LIGHT WITHIN REACH.
[2023-07-23] MEDS ORDERED: Melatonin 3 MG Tab PO SCH (21:00)
[2023-07-23] MEDS ORDERED: Pramipexole DI-HCL 0.25 MG Tab PO SCH (21:00)
[2023-07-23] MEDS ORDERED: BusPIRone HCl 5 MG Tab PO SCH (21:00)
[2023-07-23] MEDS ORDERED: Lactobacil 2-S.Thermo-Bifido 1 1 Cap PO SCH (21:00)
[2023-07-23 23:07] VITALS: BP 122/52
[2023-07-24] MEDS ORDERED: CeFAZolin Sodium 1,000 MG in NS 50 ML IV SCH
[2023-07-24 03:13] VITALS: BP 126/60
[2023-07-24 03:42] LABS: BASOPHILS ABSOLUTE AUTO 0.04 K/mm3 (0.00-0.23); BASOPHILS PERCENT AUTO 0 % (0-2); EOSINOPHILS ABSOLUTE AUTO 0.26 K/mm3 (0.00-0.68); EOSINOPHILS PERCENT AUTO 2 % (0-6); Hematocrit 37.5 % (33.0-51.0); Hemoglobin 12.1 g/dL (11.5-16.0); IMMATURE GRAN ABSOLUTE AUTO 0.05 K/mm3 (0.00-0.10); IMMATURE GRAN PERCENT AUTO 0 % (0-1); LYMPHOCYTES ABSOLUTE AUTO 1.58 K/mm3 (0.84-5.20); LYMPHOCYTES PERCENT AUTO 12 % (21-46); MONOCYTES ABSOLUTE AUTO 1.23 K/mm3 (0.16-1.47); MONOCYTES PERCENT AUTO 10 % (4-13); Mean Corpuscular HGB 28.3 pg (26.0-34.0); Mean Corpuscular HGB Conc 32.3 g/dL (31.5-36.5); Mean Corpuscular Volume 88 fL (80-100); Mean Platelet Volume 10.1 fL (9.1-12.4); NEUTROPHILS ABSOLUTE AUTO 9.68 K/mm3 (1.96-9.15); NEUTROPHILS PERCENT AUTO 75 % (41-73); Platelet Count 333 K/mm3 (150-400); RDW Coefficient Variation 14.8 % (11.7-14.2); RDW Standard Deviation 47.8 fL (35.1-46.3); Red Blood Cell Count 4.27 M/mm3 (3.80-5.20); White Blood Cell Count 12.84 K/mm3 (4.00-11.30)
[2023-07-24 04:12] LABS: Creatinine, Blood 1.83 mg/dL (0.40-1.00); Potassium, Blood 4.8 mmol/L (3.5-5.5)
--- NOTE | 2023-07-24 04:54 | NUR ---
END OF SHIFT NOTE: NO ACUTE EVENTS OVERNIGHT. PT REMAINS COOPERATIVE W/ CARE, CALLS APPROPRIATELY FOR ASSISTANCE. HR 90-110'S, SINUS ON TELE. SBP 120'S, DENIES CHEST PAIN/PRESSURE. SPO2 >90% ON RA WHILE AWAKE; PT WORE CPAP FOR APPROXIMATELY 1HR THEN REFUSED, 2L O2 VIA NC REQUIRED TO MAINTAIN SPO2 >90% WHILE ASLEEP. AFEBRILE. PT REPORTED INABILITY TO URINATE AT APPROX 2200; BLADDER SCAN COMPLETED SHOWING >700ML. STRAIGHT CATH PERFORMED, 600ML OUTPUT. PUREWICK PLACED, PT SUBSEQUENTLY ABLE TO VOID 750ML. NO BM'S OVERNIGHT. BLE DRESSINGS REMAIN INTACT, MINIMAL WEEPING FROM UPPER LEFT THIGH. REPOSITIONED T/O SHIFT. NS INFUSING PER EMAR. NO OTHER NEEDS AT THIS TIME. CALL LIGHT IN REACH, BED IN LOWEST POSITION.
[2023-07-24] MEDS ORDERED: Ondansetron HCl 2 MG / ML 2ML Vial IV PRN (06:50)
[2023-07-24 08:01] VITALS: BP 120/57
[2023-07-24] MEDS ORDERED: Ezetimibe 10 MG Tab PO SCH (09:00)
[2023-07-24] MEDS ORDERED: Heparin Sodium,Porcine 5,000 UNIT/0.5 ML SDV SC SCH (09:00)
[2023-07-24] MEDS ORDERED: Aspirin 81 MG TabEC PO SCH (09:00)
[2023-07-24] MEDS ORDERED: Citalopram Hydrobromide 20 MG Tab PO SCH (09:00)
[2023-07-24] MEDS ORDERED: Omeprazole 20 MG CapCR PO SCH (09:00)
[2023-07-24] MEDS ORDERED: Miconazole Nitrate 28 GM CREAM..G. TOP PRN (10:15)
[2023-07-24] MEDS ORDERED: Miconazole Nitrate 2% 85 GM PWD TOP PRN (10:20)
--- NOTE | 2023-07-24 11:12 | NUR ---
EXTENSIVE WOUND CARE WAS PERFORMED. BILATERAL LEG WOUNDS NOTED TO BE WEEPING WITH A LARGE AMOUNT OF DRAINAGE. THE WOUNDS TO THE LEFT LOWER LEG ARE CIRCUMFIRENTIAL, AND THEN POSTERIOR THAT ENTEND TO THE LEFT BUTTOCK. FOUL YEASTY SMELL NOTED TO THE WOUNDS. MICONAZOLE POWDER AND CREAM ARE ORDERED, THEY ARE PLACED TO ALL WOUNDS. LEFT LEG IS DRESSED WITH CALCIUM ALGINATE STRIPS, ABD PADS, KERLEX AND TUBE GAUZE. LEFT PANNUS WITH LARGE AMOUNT OF EXCORIATION, ERRYTHEMA, AND DRAINAGE NOTED, THIS AREA IS TREATED WITH MICONAZOLE CREAM AND POWDER, DRESSED WITH ABD, CALCIUM ALGINATE. LEFT BREAST ALSO WITH SMILAR WOUNDS, THEY ARE TREATED WITH THE MICONAZOLE, DRESSED WITH ABD. RIGHT LOWER LEG WITH CIRCUMFIRENTIAL YEASTY ERYTHEMIC WOUND, THIS IS ALSO DRESSED WITH MICONAZOLE, CALCIUM ALGENATE, ABD, KERLEX AND TUBE GAUZE. RIGHT PANNUS HAS LESS SKIN BREAKDOWN BUT WAS ALSO TREATED WITH ABD, AND MICONAZOLE. LEFT BREAST WITH EXTENSIVE ERYTHEMA, SKIN BREAKDOWN, DRAINAGE, AND OPEN SORES, THIS IS TREATED WITH MICONAZOLE, ABD PADS, AND CALCIUM ALGENATE.
--- NOTE | 2023-07-24 11:22 | NUR ---
PHOTOS ARE OBTAINED OF THE WOUNDS, DUE TO PRINTER ISSUES NOT ALLOW PHOTOS WERE ABLE TO BE PRINTED AT THIS TIME.
[2023-07-24 16:23] VITALS: BP 104/48
--- NOTE | 2023-07-24 17:18 | NUR ---
PT IS ALERT, ORIENTED X3. SHE DENIES CP, SR NOTED ON MONITOR WITH HR OF 90s T/O THE DAY. RADIAL PULSES ARE STRONG BILATERALLY, PEDAL PULSES ARE FAINT BILATERALLY, GROSS NON-PITTING PEDAL BLE NOTED. LYMPHEDMEA NOTED TO BLE, THAT WAS VERY WET THIS AM, SEE THIS MORNING'S NOTE ABOUT WOUND CARE. EVEN RESPIRATIONS NOTED, NON-LABORED, DENIES SOB, SHE IS ON 2L O2 VIA NASAL CANNULA, LUNG SOUNDS ARE DIMINISHED T/O. PT IS PLEASANT AND COOPERATIVE WITH CARE. VSS. NO BM TODAY, SHE HAS HAD SMALL AMOUNT OF URINE OUT WITH PUREWICK TODAY. PT REPORTS THAT SHE WILL BE RETURING TO [facility] UPON D/C, SHE STATES THAT SHE IS ABLE TO STAY DRY WITHIN HER [place] THE VAN DOES NOT LEAK AND SHE WARD UNDER A BRIDGE, SHE STATES THAT SHE DOES NOT HAVE ISSUES GETTING TO AND FROM APPOINTMENTS, AND IS ABLE TO ACCESS HER MEDICATIONS. SHE REPORTS THAT SHE CAN NOT OBTAIN HUD HOUSING OR GO TO [facility] BECAUSE "MY SISTER CAN'T BECAUSE SHE HAS A DOG". SHE STATES THAT SHE IS SUPPOSED TO CHANGE HER LEG DRESSINGS DAILY AT HOME "BUT I HAVEN'T BEEN" SHE REPORTS THAT SHE HAS SUPPLIES.
--- NOTE | 2023-07-24 18:17 | NUR ---
LINENS CHANGED. BREAST AND PANNUS DRESSINGS CHANGED. LEG DRESSINGS WILL NEED TO BE CHANGED WITHIN THE NEXT FEW HOURS.
--- NOTE | 2023-07-24 20:00 | NUR ---
ASSUMPTION OF CARE: THIS RN ASSUMED CARE OF PT AT APPROX 1900. PT ALERT, ORIENTED X4; HOWEVER, PT FREQUENTLY MAKES ODD STATEMENTS DURING CONVERSATION. HR 90-100'S, SINUS ON TELE. BP STABLE, MAP >65. DENIES CHEST PAIN/PRESSURE. SPO2 >95% ON RA WHILE AWAKE, CPAP AT BEDSIDE FOR NOC. AFEBRILE. DRESSINGS INTACT TO BLE WELL IN GROIN/PANUS/BREAST. SOME WEEPING W/ YELLOW DRAINAGE NOTED. SEE DAYSHIFT RN NOTE REGARDING EXTENSIVE WOUND CARE PROVIDED. PUREWICK IN PLACE DRAINING CLEAR YELLOW URINE. NS INFUSING AT 100ML/HR PER EMAR. MEDICAL STATUS W/ TELE AT THIS TIME. CALL LIGHT IN REACH.
[2023-07-24 20:19] VITALS: BP 128/59
--- NOTE | 2023-07-24 22:49 | NUR ---
TRANSFER NOTE: PT TRANSFERRED TO ROOM 325 BY THIS RN AT 2220. REPORT TO SAMUEL CORREIA TO ASSUME CARE OF PT. NO CHANGES IN PT CONDITION FROM TIME OF ASSUMPTION OF CARE, SEE PREVIOUS NOTE. ALL PT BELONGINGS GATHERED FROM ROOM AND TRANSFERRED W/ PT . LIFT UTILIZED TO TRANSFER PT TO ROOM 325 BED, PT TOLERATED WELL.
[2023-07-25 04:31] VITALS: BP 111/48
[2023-07-25 05:07] LABS: BASOPHILS ABSOLUTE AUTO 0.03 K/mm3 (0.00-0.23); BASOPHILS PERCENT AUTO 0 % (0-2); EOSINOPHILS ABSOLUTE AUTO 0.46 K/mm3 (0.00-0.68); EOSINOPHILS PERCENT AUTO 4 % (0-6); Hematocrit 35.3 % (33.0-51.0); Hemoglobin 11.2 g/dL (11.5-16.0); IMMATURE GRAN ABSOLUTE AUTO 0.03 K/mm3 (0.00-0.10); IMMATURE GRAN PERCENT AUTO 0 % (0-1); LYMPHOCYTES ABSOLUTE AUTO 1.23 K/mm3 (0.84-5.20); LYMPHOCYTES PERCENT AUTO 11 % (21-46); MONOCYTES ABSOLUTE AUTO 1.04 K/mm3 (0.16-1.47); MONOCYTES PERCENT AUTO 9 % (4-13); Mean Corpuscular HGB 28.5 pg (26.0-34.0); Mean Corpuscular HGB Conc 31.7 g/dL (31.5-36.5); Mean Corpuscular Volume 90 fL (80-100); Mean Platelet Volume 10.6 fL (9.1-12.4); NEUTROPHILS ABSOLUTE AUTO 8.23 K/mm3 (1.96-9.15); NEUTROPHILS PERCENT AUTO 75 % (41-73); Platelet Count 278 K/mm3 (150-400); RDW Coefficient Variation 14.6 % (11.7-14.2); RDW Standard Deviation 48.7 fL (35.1-46.3); Red Blood Cell Count 3.93 M/mm3 (3.80-5.20); White Blood Cell Count 11.02 K/mm3 (4.00-11.30)
[2023-07-25 05:27] LABS: Bun/Creatinine Ratio 18.4 (12.0-20.0); Calcium, Blood 8.6 mg/dL (8.5-10.1); Creatinine, Blood 1.36 mg/dL (0.40-1.00)
--- NOTE | 2023-07-25 06:02 | NUR ---
SHIFT SUMMARY: PT IS ADMITTED FOR CELLULITIS AND IS A FULL CODE. IS ALERT AND ABLE TO MAKE NEEDS KNOWN. ADLs HAVE BEEN 1-2P DEPENDING ON ACTIVITY BUT DID NOT GET OUT OF BED. REQUESTED APAP X1 FOR GENERAL PAIN. IV TO RIGHT AC RUNNING NS AT 100ML/H. WAS TRANSFERRED UP FROM PCU ABOUT 2200.
[2023-07-25 07:22] VITALS: BP 112/64
[2023-07-25] MEDS ORDERED: FLUTICASONE PRO16 GM (15:48)
[2023-07-25] MEDS ORDERED: THERA-D2000 UNIT PO (15:59)
[2023-07-25] MEDS ORDERED: AZO YEAST PLUS PO (16:00)
[2023-07-25 17:54] VITALS: BP 107/47
--- NOTE | 2023-07-25 18:34 | NUR ---
NO ACUTE CHANGES, NEW ABD PADS TWICE TO FOLDS TODAY FROM WEEPING CELLULITIS IN ALL FOLDS, MAKES NEEDS KNOWN, SATS 95% ON RA, CPAP WHEN SLEEPING, PATIENT VERY THIRSTY, PT WORKED WITH PATIENT TODAY, PERIWIK CHANGED TODAY AND IN PLACE NOW, ALERT AND ORIENTED, MAKES NEEDS KNOWN, CALL LIGHT WITH IN REACH
[2023-07-25 19:49] VITALS: BP 104/48
[2023-07-26 02:32] VITALS: BP 105/53
--- NOTE | 2023-07-26 03:52 | NUR ---
VEGETABLE CUTTER SUMMARY PT A&0 X 4, PLEASANT. PT REPORTED LEG AND HIP PAIN, MEDICATED WITH APAP WITH GOOD RELIEF. PT LEG BANDAGES AND PADS IN SKINFOLDS SOAKED WITH ODOROUS YELLOW DISCHARGE. SKIN FOLDS UNDER BREASTS, HIPS, GROIN AND INNER THIGHS CLEANSED AND FRESH MICINOZOLE POWDER APPLIED. MASS AMOUNTS OF EXCORIATED, RED SKIN NOTED IN FOLDS ALONG WITH YEASTY ODOR. LEG BANDAGES REMOVED AND EXCORIATED EDEMATOUS SKIN NOTED BILAT. LEGS WEEPY WITH MULTIPLE SKIN BREAKS. LARGE CREVACES NOTED IN INNER KNEE AREAS. ALGENATE APPLIED TO LEGS ALONG WITH EXU PADS AND GAUZE ROLL WRAPS. PILLOW CASES APPLIED IN LESS EXCORITED FOLDS TO HELP ABSORB MOISTURE. PT TOLERATED CLEANING/WOUND CARE WELL. PT EXPRESSING CONCERN OF CARING FOR HER LEGS WHILE BEING HOMELESS. PT WAS NOT MUCH ASSISTANCE WITH MOVING HER OWN BODY DURING WOUND CARE. I ASKED HER HOW SHE IS MANAGING TO BE HOMELESS WITHOUT MOVING AROUND AND SHE REPORTS THAT SHE "JUST SITS IN HER CAR." PT SLEPT MOST OF THE NIGHT. 07/1924 YESSY ERYES RN
[2023-07-26 05:06] LABS: Bun/Creatinine Ratio 13.6 (12.0-20.0); Calcium, Blood 8.5 mg/dL (8.5-10.1); Creatinine, Blood 1.18 mg/dL (0.40-1.00); Potassium, Blood 3.9 mmol/L (3.5-5.5)
[2023-07-26 08:07] VITALS: BP 127/66
[2023-07-26 14:14] VITALS: BP 108/50
--- NOTE | 2023-07-26 14:21 | NUR ---
WOUND CARE PT WITH WEEPING LYMPHEDEMA TO BLE AND WHAT APPEARS TO BE YEAST TO BL POSTERIOR KNEES, PANNUS, GROIN, BREAST. PT WITH SCATTERED ABRASIONS. PT IS KNOWN TO THIS RN AND UNFORTUNATELY HAS A HARD TIME PERFORMING BASIC HYGEINE D/T LIVING SITUATION. ALL AREAS CLEANSED WITH WARM WASHCLOTH. SILICONE BARRIER CREAM TO BLE COVERED WITH ABD/ROLLED GAUZE/DANNIE. ANTIFUNGAL POWDER TO ALL OTHER AREAS. SPOKE WITH PRIMARY RN ABOUT ORAL ANTIFUNGAL IF APPROPRIATE. PT TOLERATED CHANGE WELL
--- NOTE | 2023-07-26 17:49 | NUR ---
SHIFT SUMMARY; PATIENT REMAINS ON BEDREST THROUGHOUT DAY. DOES WORK WITH PT AND OT THIS AM. SHE IS AO X 4. ABLE TO FEED HERSELF AND MAKE HER NEEDS KNOWN. HER VITAL SIGNS ARE STABLE AND WNL. HER LUNGS HAVE AREAS OF COARSENESS THAT DO CLEAR WITH COUGH. SHE IS NOTED TO HAVE BODY ACHES AND IS MEDICATED WITH TYLENOL WITH MUCH SUCCESS. AUTOMOBILE TIRE BUILDER CALVIN IS WORKING WITH THIS PATIENT TO TRY AND ASSIST IN SAFE DC PLAN. PATIENT VERY RECEPTIVE TO ASSISTANCE. WILL REMAIN AVAILABLE FOR THIS PATIENT FOR ANY WANTS OR NEEDS THAT COME UP PRIOR TO SHIFT CHANGE.
[2023-07-26 19:09] VITALS: BP 117/51
[2023-07-27 03:47] VITALS: BP 116/53
--- NOTE | 2023-07-27 07:36 | NUR ---
END OF SHIFT SUMMARY PT A&O x4, VSS, AFEBRILE. PT SLEPT ON AND OFF THROUGHOUT THE NIGHT. PT C/O DUVAL, PRN APAP GIVEN WHICH WAS EFFECTIVE. PT TOLERATED CPAP. PT REQUESTED PRN TO HELP RELIEVE HEARTBURN/UPSET STOMACH, PRN IV ZOFRAN GIVEN WITH GOOD RESULTS. PT PLEASANT AND COOPERATIVE WITH CARE PROVIDED. PT ABLE TO MAKE NEEDS KNOWN. MILLER FROM WOUND CARE WILL PROVIDE WOUND CARE ON DAY SHIFT. CALL LIGHT WITHIN REACH, WCTM.
[2023-07-27 08:09] VITALS: BP 113/61
[2023-07-27 14:41] VITALS: BP 116/58
[2023-07-27 15:49] LABS: Influenza A, PCR NEGATIVE (NEGATIVE); Influenza B, PCR NEGATIVE (NEGATIVE); Resp Syncytial Virus, PCR NEGATIVE (NEGATIVE); SARS-Cov-2 (COVID-19) PCR, MMC NEGATIVE (NEGATIVE)
[2023-07-27 19:37] VITALS: BP 115/55
[2023-07-28 04:26] VITALS: BP 127/61
[2023-07-28 07:41] VITALS: BP 118/56
--- NOTE | 2023-07-28 08:04 | NUR ---
SHIFT SUMMARY PT A&OX4 AND PLEASANT. ANTIFUNGAL POWDER APPLIED TO REDDENED AREAS. CONTINUING IV ABX. PT SLEPT WITH CPAP ON T/O NIGHT. PT ABLE TO SLEEP MOST OF THE NIGHT. NO C/O PAIN. VSS. CALLS APPROPRIATELY. BED IN LOWEST POSITION AND CALL LIGHT IN REACH.
[2023-07-28] MEDS ORDERED: CELEXA40 M1 PO (15:13)
[2023-07-28] MEDS ORDERED: MICONAZOLE NITR85 GM TOP (15:14)
[2023-07-28] MEDS ORDERED: Inzo Antifun141.7 GM TOP (15:15)
--- NOTE | 2023-07-28 16:47 | NUR ---
REPORT TO JOSEFINA, PATIENT TRANSPORT HAS NOT ARRIVED
--- NOTE | 2023-07-28 18:40 | NUR ---
report to [place], patients transport still not here, per [facility] [place], it is going to be even later for them to get here, patient aware, periwik out, attends on, continent or bowel and bladder, call light with in reach, will relay to pm rn
== END 2023-07-28 19:21 | DRG 872 ==
LOC: ER 10:39 → MEDS 16:28 → PCU 16:28 → MEDS 07-24 22:28 → ENPENDDIS 07-28 17:01 → MEDS 07-28 19:21
PROVIDERS: Physician Assistant; Student in an Organized Health Care Education/Training Program; ADMIT Family Medicine
DX: A41.9 Sepsis, unspecified organism (principal); N17.9 Acute kidney failure, unspecified; L03.115 Cellulitis of right lower limb; L03.116 Cellulitis of left lower limb; E87.1 Hypo-osmolality and hyponatremia; Z68.44 Body mass index [BMI] 60.0-69.9, adult; E87.20 Acidosis, unspecified; E66.01 Morbid (severe) obesity due to excess calories; E78.5 Hyperlipidemia, unspecified; F41.9 Anxiety disorder, unspecified; I12.9 Hypertensive chronic kidney disease with stage 1 through stage 4 chronic kidney disease, or unspecified chronic kidney disease; N18.30 Chronic kidney disease, stage 3 unspecified; E87.5 Hyperkalemia; K52.9 Noninfective gastroenteritis and colitis, unspecified; D63.1 Anemia in chronic kidney disease; R07.89 Other chest pain; E83.52 Hypercalcemia; G47.30 Sleep apnea, unspecified; R65.20 Severe sepsis without septic shock; Z91.199 Patient's noncompliance with other medical treatment and regimen due to unspecified reason; Z90.710 Acquired absence of both cervix and uterus; Z90.49 Acquired absence of other specified parts of digestive tract; Z90.89 Acquired absence of other organs; Z98.890 Other specified postprocedural states; Z79.899 Other long term (current) drug therapy; Z87.891 Personal history of nicotine dependence; Z11.52 Encounter for screening for COVID-19; R54 Age-related physical debility
CPT/HCPCS: 0241U; 36415; 71046; 76770; 80047; 80048; 80053; 82565; 82947; 83605; 83735; 83880; 84132; 84145; 84484; 85014; 85025; 87040; 93005; 93010; 94644; 94660; 94664; 94762; 96365; 96367; 96375; 97110; 97162; 97530; 99285-25; A9270; J0612; J0690; J0692; J1644; J1815; J2405; J3370; J7030; J7050; J7799

== ENCOUNTER 2024-02-24 01:29 | Day surgery (SDC) | payer OTHER ==
[~2024-02-24 01:29] MED LIST changes: +AZO YEAST PLUS PO; +Acetaminophen650 M1 PO; +BENADRYL25 MG PO; +BUSPIRONE HCL5 M6 PO; +CEFTRIAXONE2 G1 IV; +CELEXA40 M1 PO; +CHOLESTYRAMI239.4 G1 PO; +Diflucan100 MG PO; +ENOX40I SC; +EZETIMIBE10 M6 PO; +FLUTICASONE PRO16 GM; +FUROSEMIDE20 MG PO; +Inzo Antifun141.7 GM TOP; +K-Dur10 MEQ PO; +MICONAZOLE NIT130 GM TOP; +MICONAZOLE NITR85 GM TOP; +PRAMIPEXOLE D0.25 M1 PO; +PRED20 PO; +PROBIOTIC1 EA13 PO; +REXULTI1 MG PO; +THERA-D2000 UNIT PO; +TRAM50 PO; +TRI-LO-SPRINTE1 EACH; +TRIAMCINOLONE 0.5% TOP; +VANCOMYCIN HCL1 G1 IV; +VILAZODONE HCL40 MG PO; +VISBIOME 112.51 EACH PO; +Ventolin/Prove6.7 GM INH; +ZANAFLEX413 PO
== END 2024-02-24 22:53 | disposition home or self-care (01) ==
LOC: WOUND 01:29
DX: I87.312 Chronic venous hypertension (idiopathic) with ulcer of left lower extremity (principal); L97.822 Non-pressure chronic ulcer of other part of left lower leg with fat layer exposed; I87.2 Venous insufficiency (chronic) (peripheral); E11.51 Type 2 diabetes mellitus with diabetic peripheral angiopathy without gangrene; G47.30 Sleep apnea, unspecified; I10 Essential (primary) hypertension; K21.9 Gastro-esophageal reflux disease without esophagitis; E66.01 Morbid (severe) obesity due to excess calories; Z68.44 Body mass index [BMI] 60.0-69.9, adult
CPT/HCPCS: A6213; G0463

== ENCOUNTER 2024-03-02 02:49 | Day surgery (SDC) | payer OTHER | END 2024-03-02 23:00 | disposition home or self-care (01) | LOC: WOUND 02:49 | DX: I87.312 Chronic venous hypertension (idiopathic) with ulcer of left lower extremity (principal); L97.822 Non-pressure chronic ulcer of other part of left lower leg with fat layer exposed; I87.2 Venous insufficiency (chronic) (peripheral); R60.0 Localized edema; I73.9 Peripheral vascular disease, unspecified; G47.30 Sleep apnea, unspecified; E66.01 Morbid (severe) obesity due to excess calories; Z68.44 Body mass index [BMI] 60.0-69.9, adult | CPT/HCPCS: 87070; 87075; 87077; 87147; 87186; 87205; A6213; G0463 ==

== ENCOUNTER 2024-03-09 02:13 | Day surgery (SDC) | payer OTHER ==
[2024-03-09] MEDS ORDERED: Lidocaine HCl 4% Cream 5 GM ONE (08:38)
== END 2024-03-09 23:00 | disposition home or self-care (01) ==
LOC: WOUND 02:13
DX: I87.312 Chronic venous hypertension (idiopathic) with ulcer of left lower extremity (principal); L97.822 Non-pressure chronic ulcer of other part of left lower leg with fat layer exposed; I87.2 Venous insufficiency (chronic) (peripheral); R60.0 Localized edema; E10.51 Type 1 diabetes mellitus with diabetic peripheral angiopathy without gangrene; G47.30 Sleep apnea, unspecified
CPT/HCPCS: A6196; A6213; A9270

== ENCOUNTER 2024-03-16 02:04 | Day surgery (SDC) | payer OTHER ==
[2024-03-16] MEDS ORDERED: Lidocaine HCl 4% Cream 5 GM ONE (08:53)
== END 2024-03-17 02:46 | disposition home or self-care (01) ==
LOC: WOUND 02:04
DX: E11.622 Type 2 diabetes mellitus with other skin ulcer (principal); L97.822 Non-pressure chronic ulcer of other part of left lower leg with fat layer exposed; I87.312 Chronic venous hypertension (idiopathic) with ulcer of left lower extremity; I87.2 Venous insufficiency (chronic) (peripheral); R60.0 Localized edema; E11.51 Type 2 diabetes mellitus with diabetic peripheral angiopathy without gangrene
CPT/HCPCS: A6196; A6213; A9270

== ENCOUNTER 2024-03-27 02:22 | Day surgery (SDC) | payer OTHER | END 2024-03-27 23:00 | disposition home or self-care (01) | LOC: WOUND 02:22 | DX: E11.622 Type 2 diabetes mellitus with other skin ulcer (principal); L97.822 Non-pressure chronic ulcer of other part of left lower leg with fat layer exposed; I87.312 Chronic venous hypertension (idiopathic) with ulcer of left lower extremity; E66.01 Morbid (severe) obesity due to excess calories; G47.30 Sleep apnea, unspecified; I87.2 Venous insufficiency (chronic) (peripheral); E11.51 Type 2 diabetes mellitus with diabetic peripheral angiopathy without gangrene; L03.116 Cellulitis of left lower limb | CPT/HCPCS: 87070; 87075; 87077; 87147; 87186; 87205; A6196; G0463 ==

== ENCOUNTER 2024-04-03 02:41 | Day surgery (SDC) | payer OTHER | END 2024-04-03 23:12 | disposition home or self-care (01) | LOC: WOUND 02:41 | DX: E11.622 Type 2 diabetes mellitus with other skin ulcer (principal); L97.822 Non-pressure chronic ulcer of other part of left lower leg with fat layer exposed; E66.01 Morbid (severe) obesity due to excess calories; G47.30 Sleep apnea, unspecified; E11.9 Type 2 diabetes mellitus without complications; I87.312 Chronic venous hypertension (idiopathic) with ulcer of left lower extremity; I87.2 Venous insufficiency (chronic) (peripheral); E11.51 Type 2 diabetes mellitus with diabetic peripheral angiopathy without gangrene; L03.116 Cellulitis of left lower limb | CPT/HCPCS: G0463 ==

== ENCOUNTER 2024-04-10 01:51 | Day surgery (SDC) | payer OTHER | END 2024-04-10 22:59 | disposition home or self-care (01) | LOC: WOUND 01:51 | DX: E11.622 Type 2 diabetes mellitus with other skin ulcer (principal); L97.822 Non-pressure chronic ulcer of other part of left lower leg with fat layer exposed; E66.01 Morbid (severe) obesity due to excess calories; G47.30 Sleep apnea, unspecified; I87.312 Chronic venous hypertension (idiopathic) with ulcer of left lower extremity; I87.2 Venous insufficiency (chronic) (peripheral); E11.51 Type 2 diabetes mellitus with diabetic peripheral angiopathy without gangrene; L03.116 Cellulitis of left lower limb | CPT/HCPCS: G0463 ==

== ENCOUNTER 2024-04-17 03:46 | Day surgery (SDC) | payer OTHER | END 2024-04-17 23:00 | disposition home or self-care (01) | LOC: WOUND 03:46 | DX: E11.622 Type 2 diabetes mellitus with other skin ulcer (principal); L97.822 Non-pressure chronic ulcer of other part of left lower leg with fat layer exposed; I87.312 Chronic venous hypertension (idiopathic) with ulcer of left lower extremity; I87.2 Venous insufficiency (chronic) (peripheral); E11.51 Type 2 diabetes mellitus with diabetic peripheral angiopathy without gangrene; L03.116 Cellulitis of left lower limb | CPT/HCPCS: G0463 ==

== ENCOUNTER 2024-05-11 10:10 | Day surgery (SDC) | payer OTHER | END 2024-05-11 23:00 | disposition home or self-care (01) | LOC: WOUND 10:10 | DX: I87.312 Chronic venous hypertension (idiopathic) with ulcer of left lower extremity (principal); L97.822 Non-pressure chronic ulcer of other part of left lower leg with fat layer exposed; I87.2 Venous insufficiency (chronic) (peripheral); I73.9 Peripheral vascular disease, unspecified; L03.116 Cellulitis of left lower limb | CPT/HCPCS: G0463 ==

== ENCOUNTER 2024-05-26 16:20 | Inpatient (IN) | payer OTHER ==
[~2024-05-26] VITALS: Ht 160 cm; Wt 163.3 kg
[~2024-05-26 16:20] MED LIST changes: -ALBU90OI INH; -Adipex-P37.5 M1 PO; -CLIN300 PO; -FURO20 PO; -Lotrimin AF113 GM TOP; -MIRALAX17 GM PO; -OSEL75CA PO; -POTA10T PO; -VITAMIN D5000 UNIT PO; -ZYRTEC10 M2 PO
[2024-05-26] MEDS ORDERED: Lactated Ringer's 1,000 ML IV ONE (23:35)
[2024-05-26] MEDS ORDERED: Morphine Sulfate 10 MG/ML 1MLSYR IV ONE (23:40)
[2024-05-26] MEDS ORDERED: Ondansetron HCl 2 MG / ML 2ML Vial IV ONE (23:40)
[2024-05-27] MEDS ORDERED: FentaNYL Citrate 50 MCG/ML 2 ML Injection IV PRN (00:35)
[2024-05-27] MEDS ORDERED: FLU VACC TS2024-25(6MOS UP)/PF 45 MCG/0.5 ML SYRINGE IM ONE (00:35)
[2024-05-27] MEDS ORDERED: Acetaminophen 325 MG TABLET PO PRN (00:35)
[2024-05-27] MEDS ORDERED: NS 1,000 ML IV ONE (00:35)
[2024-05-27] MEDS ORDERED: Ondansetron HCl 2 MG / ML 2ML Vial IV PRN (00:35)
[2024-05-27 00:40] LABS: C-REACTIVE PROTEIN, EXT RANGE 13.7 mg/dL (0.000-0.300)
[2024-05-27] MEDS ORDERED: HYDROmorphone HCl/Pf 1MG SYR IV ONE (01:05)
[2024-05-27 01:16] LABS: Albumin, Blood 2.9 g/dL (3.4-5.0); Albumin/Globulin Ratio 0.5 (0.8-1.8); Bilirubin, Total 0.7 mg/dL (0.1-1.0); Bun/Creatinine Ratio 15.1 (12.0-20.0); Creatinine, Blood 1.26 mg/dL (0.40-1.00); Globulin, Blood 5.6 g/dL (2.2-4.0); Potassium, Blood 3.9 mmol/L (3.5-5.5); Total Protein, Blood 8.5 g/dL (6.4-8.2)
[2024-05-27 01:20] LABS: BASOPHILS ABSOLUTE AUTO 0.04 K/mm3 (0.00-0.23); BASOPHILS PERCENT AUTO 0 % (0-2); EOSINOPHILS ABSOLUTE AUTO 0.21 K/mm3 (0.00-0.68); EOSINOPHILS PERCENT AUTO 1 % (0-6); Hematocrit 36.1 % (33.0-51.0); Hemoglobin 11.7 g/dL (11.5-16.0); IMMATURE GRAN ABSOLUTE AUTO 0.09 K/mm3 (0.00-0.10); IMMATURE GRAN PERCENT AUTO 1 % (0-1); LYMPHOCYTES ABSOLUTE AUTO 1.12 K/mm3 (0.84-5.20); LYMPHOCYTES PERCENT AUTO 6 % (21-46); MONOCYTES ABSOLUTE AUTO 1.04 K/mm3 (0.16-1.47); MONOCYTES PERCENT AUTO 6 % (4-13); Mean Corpuscular HGB 27.7 pg (26.0-34.0); Mean Corpuscular HGB Conc 32.4 g/dL (31.5-36.5); Mean Corpuscular Volume 85 fL (80-100); NEUTROPHILS ABSOLUTE AUTO 15.71 K/mm3 (1.96-9.15); NEUTROPHILS PERCENT AUTO 86 % (41-73); RDW Coefficient Variation 14.4 % (11.7-14.2); RDW Standard Deviation 44.8 fL (35.1-46.3); Red Blood Cell Count 4.23 M/mm3 (3.80-5.20); White Blood Cell Count 18.21 K/mm3 (4.00-11.30)
[2024-05-27 01:21] LABS: Mean Platelet Volume 9.7 fL (9.1-12.4); Platelet Count 440 K/mm3 (150-400)
[2024-05-27] MEDS ORDERED: Piperacillin/Tazobactam Sod 4.5 GM in NS 100 ML IV SCH ×2 (01:44→16:00)
[2024-05-27] MEDS ORDERED: Vancomycin HCL 2,500 MG in NS 500 ML IV ONE (01:55)
[2024-05-27 08:04] VITALS: BP 116/58
[2024-05-27] MEDS ORDERED: POTA10T PO (08:18)
[2024-05-27] MEDS ORDERED: ZYRTEC10 M2 PO (08:19)
[2024-05-27] MEDS ORDERED: FURO20 PO (08:20)
[2024-05-27] MEDS ORDERED: REXULTI1 MG PO (08:21)
[2024-05-27] MEDS ORDERED: ALBU90OI INH (08:22)
[2024-05-27] MEDS ORDERED: VITAMIN D5000 UNIT PO (08:23)
[2024-05-27] MEDS ORDERED: Adipex-P37.5 M1 PO (08:24)
[2024-05-27] MEDS ORDERED: Enoxaparin 40 MG/0.4 ML SYR SC SCH (09:00)
[2024-05-27] MEDS ORDERED: Vancomycin HCL 1,250 MG in NS 250 ML IV SCH (16:00)
--- NOTE | 2024-05-27 17:37 | NUR ---
SHIFT NOTE: PT ARRIVED TO UNIT FROM ER DUE TO PAIN IN HER LOWER EXTRIMITY. THE WOUND HAD CONTINUED TO DRAIN, IT IS COVERED WITH A MEPILEX AND NEEDED CHANGED EVERY COUPLE HOURS. PT IS A/OX4 ABLE TO MAKE HER NEEDS KNOWN. SHE IS ON RA AT BASELINE BUT HAS REQUIRED 2L NC TO MAINTAIN SPO2>90%. SHE USES A HOME CPAP, FAMILY TO BRING IT IN. SHE IS ON TELE IN NSR WITH NO ACUTE CHANGES THIS SHIFT. SHE DENIES CHEST PAIN/PRESSURE. SHE IS CONT BUT DUE TO PAIN IN HER LEG HAS BEEN UNABLE TO GET UP, PUREWICK IN PLACE TO PROTECT SKIN. ABX RUNNING PER EMAR. CARE CONTINUES
[2024-05-27 21:17] VITALS: BP 131/73
--- NOTE | 2024-05-27 22:39 | NUR ---
MED REC MED REC COMPLETED WITH PT WITH PILL BOTTLES BROUGHT IN BY PATIENTS SISTER. MED REC IS NOW UPDATED.
[2024-05-28 05:28] LABS: BASOPHILS ABSOLUTE AUTO 0.03 K/mm3 (0.00-0.23); BASOPHILS PERCENT AUTO 0 % (0-2); EOSINOPHILS ABSOLUTE AUTO 0.48 K/mm3 (0.00-0.68); EOSINOPHILS PERCENT AUTO 4 % (0-6); Hematocrit 34.4 % (33.0-51.0); Hemoglobin 10.9 g/dL (11.5-16.0); IMMATURE GRAN ABSOLUTE AUTO 0.06 K/mm3 (0.00-0.10); IMMATURE GRAN PERCENT AUTO 1 % (0-1); LYMPHOCYTES ABSOLUTE AUTO 0.91 K/mm3 (0.84-5.20); LYMPHOCYTES PERCENT AUTO 7 % (21-46); MONOCYTES ABSOLUTE AUTO 0.87 K/mm3 (0.16-1.47); MONOCYTES PERCENT AUTO 7 % (4-13); Mean Corpuscular HGB 27.8 pg (26.0-34.0); Mean Corpuscular HGB Conc 31.7 g/dL (31.5-36.5); Mean Corpuscular Volume 88 fL (80-100); Mean Platelet Volume 9.5 fL (9.1-12.4); NEUTROPHILS ABSOLUTE AUTO 9.88 K/mm3 (1.96-9.15); NEUTROPHILS PERCENT AUTO 81 % (41-73); Platelet Count 377 K/mm3 (150-400); RDW Coefficient Variation 14.6 % (11.7-14.2); RDW Standard Deviation 46.9 fL (35.1-46.3); Red Blood Cell Count 3.92 M/mm3 (3.80-5.20); White Blood Cell Count 12.23 K/mm3 (4.00-11.30)
[2024-05-28 05:34] VITALS: BP 128/74
[2024-05-28 06:03] LABS: Bun/Creatinine Ratio 13.2 (12.0-20.0); Calcium, Blood 9.1 mg/dL (8.5-10.1); Creatinine, Blood 1.29 mg/dL (0.40-1.00); Potassium, Blood 3.9 mmol/L (3.5-5.5)
--- NOTE | 2024-05-28 06:48 | NUR ---
NOC SHIFT SUMMARY CHANGED DRESSINGS ON LEGS. WOUNDS CONTINUE TO WEEP WITH NO SIGNS OF PUS. PT EXPERIENCED THROBBING IN HER L LEG OVERNIGHT. RAISED LEFT LEG ON 2 PILLOWS. ORDER FOR IV FENTANYL IS 25-50MCG, GAVE 25MCG AND THEN WAITED 10 MINUTES AND GAVE THE OTHER 25 MCG BECAUSE WHEN PT DOES FALL ASLEEP SHE SLEEPS VERY HARD AND SHE HAS OBESITY RELATED HYPOVENTILATION WELL SLEEP APNEA. HOWEVER, PT DID TOLERATE THE FENTANYL WELL. IT WORKS WELL FOR HER PAIN BUT DOESNT LAST LONG. WILL RECOMMEND TO DAY SHIFT TO ASK FOR IT TO BE DISCONTINUED AND MAYBE TO ASK FOR TRAMADOL.
[2024-05-28 07:37] VITALS: BP 131/68
[2024-05-28] MEDS ORDERED: Arginine/Glutamine/Calcium Hmb 1 Packet PO SCH (10:50)
--- NOTE | 2024-05-28 13:56 | NUR ---
NOTE CHANGED WOUND DRESSINGS/MEPILEX ON LLE. CLEANSED WOUND WITH STERILE SALINE AND PAT DRY WITH 4X4 GAUZE. APPLIED NEW MEPILEX ON BOTH LLE WOUNDS. UPPER WOUND WHEEPING WITH SOME SANGINOUS FLUID. LOWER WOUND ON POZO HAD YELLOW/GREEN FLUID ON OLD MEPILEX. PT HAD NO COMPLAINTS. BED IN LOWEST POSITION, CALL LIGHT IN REACH.
--- NOTE | 2024-05-28 15:05 | NUR ---
note called dr. rivera notified pt reporting 5/10 pain and seeing if wanted to order different pain medication other than fentynal and tylenol that is ordered. pt spo2 has been 93% on 2l o2, night nurse reported she has been on o2 due to regan hx and due to pt refused cpap. pt naps through day, spo2 is 88% on room air when napping, dr. rivera reported it being ok that pt is on 2l n/c.
[2024-05-28] MEDS ORDERED: TraMADol HCl 50 MG Tab PO PRN (15:15)
[2024-05-28] MEDS ORDERED: FentaNYL Citrate 50 MCG/ML 2 ML Injection IV PRN (15:20)
[2024-05-28] MEDS ORDERED: Polyethylene Glycol 3350 17 gm PO PRN (15:25)
[2024-05-28 15:35] LABS: Vancomycin, Trough 19.9 ug/mL (5.0-10.0)
[2024-05-28] MEDS ORDERED: Vancomycin HCL 2,000 MG in NS 500 ML IV SCH (16:00)
[2024-05-28 16:22] VITALS: BP 138/69
[2024-05-28] MEDS ORDERED: NS 250 ML IV PRN (17:25)
--- NOTE | 2024-05-28 17:53 | NUR ---
SHIFT SUMMARY PT A&OX4. PT ADMITTED DUE TO CELLULITIS. PT REPOSITIONED Q2 HOURS. WOUND CARE COMPLETE. PT REPORTED CHRONIC BACK/NECK PAIN AND PAIN ON LLE. PAIN MEDICATED PER EMAR. PT HAS BEEN NAPPING OFF AND ON DURING SHIFT. PT REPORTED RESPONDED WELL TO ULTRAM MED. PT RECEIVED ANTIBIOTIC AND VANCO DURING SHIFT. PLAN FOR PT TO BE NPO AT MIDNIGHT, FOR I&D OF LLE ABSCESS TOMORROW, WILL PASS IT ON IN REPORT.
--- NOTE | 2024-05-28 18:10 | NUR ---
THIS GROUNDSMAN HAS REVIEWED AND AGREES WITH ALL NOTES AND ASSESSMENTS BY JOSE G VO.
[2024-05-28] MEDS ORDERED: TiZANidine HCl 4 MG Tab PO PRN (18:15)
[2024-05-28 20:35] VITALS: BP 126/74
[2024-05-28] MEDS ORDERED: Lactobacil 2-S.Thermo-Bifido 1 1 Cap PO SCH (21:00)
[2024-05-28] MEDS ORDERED: BusPIRone HCl 5 MG Tab PO SCH (21:00)
[2024-05-29 04:43] VITALS: BP 130/73
--- NOTE | 2024-05-29 04:53 | NUR ---
SHIFT SUMMARY: PT AOX4 ABLE TO COMMUNICATE NEEDS EFFECTIVELY. SOME COMPLAINTS OF PAIN FROM HEADACHE, BACK AND EFFECTED LEG. MEDICATED PER EMR. MADE NPO AT MIDNIGHT, PT TOLERATING WELL. RESTLESS AND ONLY DRIFTING IN AND OUT OF SLEEP. PT REFUSED CPAP. CURRENTLY ON 2L NC. TOLERATED MEDS WELL DENIES CHEST PAIN. PT HAS PURE WICK IN PLACE DUE TO TROUBLE STANDING AND TRANSFERRING. HAS HAD GOOD OUTPUT. WOUND DRESSING CDI, SITE STILL RED AND SWOLLEN. PT HAS HAD NONPRODUCTIVE COUGH. ENCOURAGED TO USE INCENTIVE SPIROMETER WITH VARYING PROGRESS. PT RESTING IN BED, BED IN LOWEST POSITION, CALL LIGHT IN REACH. CONTINUING CARE.
[2024-05-29 05:19] LABS: BASOPHILS ABSOLUTE AUTO 0.03 K/mm3 (0.00-0.23); BASOPHILS PERCENT AUTO 0 % (0-2); EOSINOPHILS ABSOLUTE AUTO 0.54 K/mm3 (0.00-0.68); EOSINOPHILS PERCENT AUTO 6 % (0-6); Hematocrit 34.5 % (33.0-51.0); IMMATURE GRAN ABSOLUTE AUTO 0.05 K/mm3 (0.00-0.10); IMMATURE GRAN PERCENT AUTO 1 % (0-1); LYMPHOCYTES ABSOLUTE AUTO 0.72 K/mm3 (0.84-5.20); LYMPHOCYTES PERCENT AUTO 8 % (21-46); MONOCYTES ABSOLUTE AUTO 0.79 K/mm3 (0.16-1.47); MONOCYTES PERCENT AUTO 9 % (4-13); Mean Corpuscular HGB 27.5 pg (26.0-34.0); Mean Corpuscular HGB Conc 31.9 g/dL (31.5-36.5); Mean Corpuscular Volume 86 fL (80-100); Mean Platelet Volume 9.5 fL (9.1-12.4); NEUTROPHILS ABSOLUTE AUTO 6.61 K/mm3 (1.96-9.15); NEUTROPHILS PERCENT AUTO 76 % (41-73); Platelet Count 389 K/mm3 (150-400); RDW Coefficient Variation 14.3 % (11.7-14.2); RDW Standard Deviation 45.4 fL (35.1-46.3); White Blood Cell Count 8.74 K/mm3 (4.00-11.30)
[2024-05-29 05:41] LABS: Bun/Creatinine Ratio 18.8 (12.0-20.0); Calcium, Blood 9.2 mg/dL (8.5-10.1); Creatinine, Blood 1.12 mg/dL (0.40-1.00); Potassium, Blood 3.6 mmol/L (3.5-5.5)
[2024-05-29 08:04] VITALS: BP 122/66
[2024-05-29] MEDS ORDERED: Omeprazole 20 MG CapCR PO SCH (09:00)
[2024-05-29] MEDS ORDERED: Ezetimibe 10 MG Tab PO SCH (09:00)
[2024-05-29 15:50] VITALS: BP 135/77
--- NOTE | 2024-05-29 17:08 | NUR ---
SHIFT NOTE: PT A/OX4 ABLE TO MAKE HER NEEDS KNOWN. SHE IS ON 2L NC TO MAINTAIN SPO2>90%. SHE IS ON TELE IN NSR WITH NO ACUTE EVENTS T/O SHIFT. SHE HAS A PUREWICK SET UP TO SUCTION DRAINING YELLOW URINE. SHE IS 1P SBA TO THE CHAIR. LEFT UPPER ARM POWERGLIDE WAS PLACED TODAY RUNNING VANCO PER EMAR. SHE TAKES HER MEDS WHOLE WITHOUT DIFFICULTY. PLAN IS FOR NPO AT MIDNIGHT FOR ORTHO CONSULT TOMORROW. CARE CONTINUES
[2024-05-29 19:52] VITALS: BP 148/78
[2024-05-30] VITALS (14 sets, daily range): BP systolic 115–151; BP diastolic 60–91
--- NOTE | 2024-05-30 04:24 | NUR ---
SHIFT SUMMARY: PT AOX4. ABLE TO TRANSFER TO [facility]. SOME COMPLAINTS OF PAIN, MEDICATED PER EMR. SLEPT A LITTLE BIT TONIGHT. MADE NPO AT MIDNIGHT FOR PROCEDURE FOLLOWING DAY. PT COMPLIANT AND FOLLOWS COMMANDS. PURE WICK IN PLACE WITH GOOD OUTPUT. MOISTURIZER APPLIED TO AFFECTED LEG TO PREVENT SOME ITCHING. BARRIER CREAM AND BABY POWDER APPLIED TO HERSON AREA AND ANUS. TOLERATING MEDICATIONS WELL. ON 2L NC. PT RESTING IN BED, BED IN LOWEST POSITION AND CALL LIGHT IN REACH. CONTUING CARE.
[2024-05-30] MEDS ORDERED: Metoclopramide HCl 5MG / ML 2ML Vial ONE (07:58)
[2024-05-30] MEDS ORDERED: Ondansetron HCl 2 MG / ML 2ML Vial ONE (07:58)
[2024-05-30] MEDS ORDERED: Ketorolac Tromethamine 30mg Vial ONE (07:58)
[2024-05-30] MEDS ORDERED: FentaNYL Citrate 50 MCG/ML 2 ML Injection ONE ×2 (07:58→09:02)
[2024-05-30] MEDS ORDERED: propofoL 20 ML IV ONE (07:58)
[2024-05-30 08:03] LABS: BASOPHILS ABSOLUTE AUTO 0.03 K/mm3 (0.00-0.23); BASOPHILS PERCENT AUTO 0 % (0-2); EOSINOPHILS ABSOLUTE AUTO 0.42 K/mm3 (0.00-0.68); EOSINOPHILS PERCENT AUTO 6 % (0-6); Hematocrit 35.2 % (33.0-51.0); Hemoglobin 11.5 g/dL (11.5-16.0); IMMATURE GRAN ABSOLUTE AUTO 0.02 K/mm3 (0.00-0.10); IMMATURE GRAN PERCENT AUTO 0 % (0-1); LYMPHOCYTES ABSOLUTE AUTO 0.58 K/mm3 (0.84-5.20); LYMPHOCYTES PERCENT AUTO 9 % (21-46); MONOCYTES ABSOLUTE AUTO 0.67 K/mm3 (0.16-1.47); MONOCYTES PERCENT AUTO 10 % (4-13); Mean Corpuscular HGB 27.9 pg (26.0-34.0); Mean Corpuscular HGB Conc 32.7 g/dL (31.5-36.5); Mean Corpuscular Volume 85 fL (80-100); Mean Platelet Volume 9.4 fL (9.1-12.4); NEUTROPHILS ABSOLUTE AUTO 5.01 K/mm3 (1.96-9.15); NEUTROPHILS PERCENT AUTO 75 % (41-73); Platelet Count 362 K/mm3 (150-400); RDW Coefficient Variation 14.2 % (11.7-14.2); RDW Standard Deviation 44.5 fL (35.1-46.3); Red Blood Cell Count 4.12 M/mm3 (3.80-5.20); White Blood Cell Count 6.73 K/mm3 (4.00-11.30)
[2024-05-30 08:24] LABS: Calcium, Blood 9.3 mg/dL (8.5-10.1); Creatinine, Blood 1.07 mg/dL (0.40-1.00); Potassium, Blood 3.8 mmol/L (3.5-5.5)
[2024-05-30] MEDS ORDERED: Lactated Ringer's 1,000 ML IV SCH (08:40)
--- NOTE | 2024-05-30 08:48 | NUR ---
JOSE ALFREDO INTO [facility]IA [employer]. History, Chart, Medications and Allergies reviewed before start of procedure.Patient confirms NPO status and agrees with scheduled surgery. PATIENT ABLE TO TRANSFER TO BED. PER MD OKAY WITH NO ADDITIONAL PREOP ANTIBIOTIC.
[2024-05-30] MEDS ORDERED: HYDROmorphone HCl/Pf 1MG SYR ONE (09:43)
[2024-05-30 15:47] LABS: Vancomycin, Trough 14.6 ug/mL (5.0-10.0)
--- NOTE | 2024-05-30 18:16 | NUR ---
SHIFT SUMMARY PATIENT UNDERWENT I&D THIS SHIFT. CSM CHECKS INTACT. VSS, ON 2 LITERS NC. A/O X4. LEFT LOWER LEG ACED WRAPPED IN SURGERY, DID NOT REMOVE. MEDICATED WITH TRAMADOL PER MAR, C/O SHARP PAIN IN SURGICAL AREA. TOLERATING ABX WELL. POWERGLIDE INTACT, DRAWS RED BLOOD. ABLE TO MAKE NEEDS KNOWN. CALL LIGHT IN REACH, CARES ONGOING.
[2024-05-31 00:10] VITALS: BP 106/62
--- NOTE | 2024-05-31 03:29 | NUR ---
SHIFT SUMMARY PT AOX4, COOPERATIVE, ABLE TO MAKE NEEDS KNOWN. NO ACUTE EVENTS TOOK PLACE DURING SHIFT. PT TRANFERRED TO RECLINER FOR ABOUT 1.5 HOURS. TOLERATED PO MEDS APPROPRIATELY. PURE WICK IN PLACE. RT FIXED PT CPAP TO BLEED O2 IN, PT NOW WEARING CPAP WITH 7L O2, TITRATING NEEDED. CON PULSE OX ACTIVE. BED IN LOWEST POSITION, CALL LIGHT WITHIN REACH.
[2024-05-31 04:22] VITALS: BP 118/67
[2024-05-31 06:13] LABS: Hematocrit 32.9 % (33.0-51.0); Hemoglobin 10.4 g/dL (11.5-16.0); Mean Corpuscular HGB 27.4 pg (26.0-34.0); Mean Corpuscular HGB Conc 31.6 g/dL (31.5-36.5); Mean Corpuscular Volume 87 fL (80-100); Mean Platelet Volume 9.7 fL (9.1-12.4); Platelet Count 330 K/mm3 (150-400); RDW Coefficient Variation 14.5 % (11.7-14.2); RDW Standard Deviation 46.3 fL (35.1-46.3); White Blood Cell Count 5.71 K/mm3 (4.00-11.30)
[2024-05-31 07:29] VITALS: BP 111/63
[2024-05-31 07:48] LABS: Bun/Creatinine Ratio 16.1 (12.0-20.0); Calcium, Blood 8.6 mg/dL (8.5-10.1); Creatinine, Blood 1.24 mg/dL (0.40-1.00); Potassium, Blood 3.9 mmol/L (3.5-5.5)
[2024-05-31 15:25] LABS: Influenza B, PCR NEGATIVE (NEGATIVE); Resp Syncytial Virus, PCR NEGATIVE (NEGATIVE); SARS-Cov-2 (COVID-19) PCR, MMC NEGATIVE (NEGATIVE)
[2024-05-31 15:26] VITALS: BP 131/71
[2024-05-31 15:27] LABS: Influenza A, PCR POSITIVE (NEGATIVE)
--- NOTE | 2024-05-31 16:59 | NUR ---
SHIFT SUMMARY PT RESTING QUIETLY AT START OF SHIFT. DR MARTINEZ IN TO SEE PT DURING SHIFT REPORT AND CHECK ON POST OP STATUS AND DISCUSS PLAN OF CARE GOING FORWARD. PACKING TO BE REMOVED TOMORROW FROM LLE WOUND, PER DR SERRANO. WOUND CARE INSTRUCTIONS ARE IN DR SERRANO'S NOTE. DR LOPEZ AND DR CELAYA, BOTH IN TO SEE PT THIS AM WELL. PT UP TO CHAIR FOR BREAKFAST AND THEN REQUESTING ASSIST BACK TO BED. DR LOPEZ LATER PLACED ORDERS FOR RESPIRATORY SWAB D/T LOW GRADE TEMP. SWAB RETURNED POSITIVE FOR INFLUENZA A. PT NOW IN DROPLET ISO. LUNGS T/O DIMINISHED WITH EXP WHEEZES THRU OUT. PT MEDICATED PER EMAR X1 FOR C/O PAIN TO LLE AND BACK. PT SLEPT MOST ALL OF TODAY. PT DOES WAKE FOR CARE, BUT GOES RIGHT BACK TO SLEEP. PT WANTING TO D/C BACK TO HOME TOMORROW. PT IS A&O, ABLE TO MAKE NEEDS KNOWN. CALL LT IN REACH.
[2024-05-31 20:14] VITALS: BP 103/73
[2024-06-01 02:57] VITALS: BP 140/67
--- NOTE | 2024-06-01 05:08 | NUR ---
SHIFT SUMMARY. NO ACUTE CHANGES NOTED THIS SHIFT. DANNIE BANDAGE REMOVED D/T IRRITATION AND PATIENT REPORTS AN ALLERGY-KERLEX WRAP ON IN PLACE OF DANNIE BANDAGE. PATIENT SLEPT OFF AND ON T/O SHIFT-UP TO CHAIR DURING THE NIGHT. BED BATH COMPLETED THIS SHIFT. POWER GLIDE DRESSING CHANGED AND CHG BATH COMPLETED. PATIENT IS ON 2LPM VIA NC SATTING >92%. BED IS LOCKED IN THE LOWEST POSITION WITH CALL LIGHT IN REACH. CARE IS ONGOING.
[2024-06-01 06:50] LABS: BASOPHILS ABSOLUTE AUTO 0.01 K/mm3 (0.00-0.23); BASOPHILS PERCENT AUTO 0 % (0-2); EOSINOPHILS ABSOLUTE AUTO 0.38 K/mm3 (0.00-0.68); EOSINOPHILS PERCENT AUTO 7 % (0-6); Hemoglobin 10.4 g/dL (11.5-16.0); IMMATURE GRAN ABSOLUTE AUTO 0.05 K/mm3 (0.00-0.10); IMMATURE GRAN PERCENT AUTO 1 % (0-1); LYMPHOCYTES ABSOLUTE AUTO 0.74 K/mm3 (0.84-5.20); LYMPHOCYTES PERCENT AUTO 13 % (21-46); MONOCYTES ABSOLUTE AUTO 0.63 K/mm3 (0.16-1.47); MONOCYTES PERCENT AUTO 11 % (4-13); Mean Corpuscular HGB 27.9 pg (26.0-34.0); Mean Corpuscular HGB Conc 32.5 g/dL (31.5-36.5); Mean Corpuscular Volume 86 fL (80-100); Mean Platelet Volume 9.3 fL (9.1-12.4); NEUTROPHILS PERCENT AUTO 67 % (41-73); Platelet Count 279 K/mm3 (150-400); RDW Coefficient Variation 14.7 % (11.7-14.2); RDW Standard Deviation 46.7 fL (35.1-46.3); Red Blood Cell Count 3.73 M/mm3 (3.80-5.20); White Blood Cell Count 5.51 K/mm3 (4.00-11.30)
[2024-06-01 07:07] VITALS: BP 136/66
[2024-06-01 07:11] LABS: Albumin, Blood 2.5 g/dL (3.4-5.0); Albumin/Globulin Ratio 0.5 (0.8-1.8); Bilirubin, Total 0.3 mg/dL (0.1-1.0); Bun/Creatinine Ratio 18.4 (12.0-20.0); Calcium, Blood 8.9 mg/dL (8.5-10.1); Creatinine, Blood 1.14 mg/dL (0.40-1.00); Globulin, Blood 5.4 g/dL (2.2-4.0); Potassium, Blood 3.7 mmol/L (3.5-5.5); Total Protein, Blood 7.9 g/dL (6.4-8.2)
[2024-06-01] MEDS ORDERED: Oseltamivir Phosphate 75 MG Cap PO SCH (09:00)
--- NOTE | 2024-06-01 09:40 | NUR ---
AM ASSESSMENT: Pt up in chair. LS diminished with wheezing in bases, currently on 2L per NC. HR reg. BT positive. Pulses palp, faint in L foot. Dressing to LLE wound intact. Pt states that she has 5/10 pain. Medicated per orders. Silver clothe in panis. Pt assisted back to bed with 1 person SBA. Purewick in place and draining clear, yellow urine. Dressing change to L leg: Cleaned with skinterity. Packing removed. Xeraform then ABD pad placed with wrapped with kerlex. Pt tolerated well. States that her leg is feeling much better. Pt is hoping that she can discharge home today. Call light in reach.
[2024-06-01] MEDS ORDERED: Lotrimin AF113 GM TOP (11:23)
[2024-06-01] MEDS ORDERED: MIRALAX17 GM PO (11:25)
[2024-06-01] MEDS ORDERED: OSEL75CA PO (11:25)
[2024-06-01] MEDS ORDERED: Acetaminophen650 M1 PO (11:25)
[2024-06-01] MEDS ORDERED: TRAM50 PO (11:26)
[2024-06-01] MEDS ORDERED: VISBIOME 112.51 EACH PO (11:26)
[2024-06-01] MEDS ORDERED: CLIN300 PO (11:27)
--- NOTE | 2024-06-01 14:22 | NUR ---
ASSUMED CARE OF PATIENT. SITTING UP IN RECLINER AWAITING DISCHARGE ORDERS. HOME O2 EVAL COMPLETED. CM TO PUT IN O2 ORDERS FOR DELIVERY AND DISCHARGE HOME.
--- NOTE | 2024-06-01 16:38 | NUR ---
DISCHARGE SUMMARY: A&Ox4. PLEASANT AND COOPERATIVE WITH CARE. CALLS APPROPRIATELY AND IS ABLE TO ADVOCATE NEEDS EFFECTIVELY. AMBULATES. CONTINENT/INCONTINENT. TELE WNL. MEDICATIONS FAXED TO PHARMACY. INSTRUCTED TO FOLLOW-UP WITH PROVIDERS ORDERED. LEFT FLOOR AT WITH ALL BELONGINGS AND DISCHARGE PACKET, ESCORTED BY YOVANA LUGO. TRANSPORTATION BACK HOME TO [facility] PROVIDED BY SISTER.
== END 2024-06-01 16:05 | disposition home health service (06) | DRG 854 ==
LOC: ER 16:20 → MEDS 05-27 00:31 → ERHOLD 05-27 00:31 → MEDS 05-27 07:59
PROVIDERS: Orthopaedic Surgery; Student in an Organized Health Care Education/Training Program; ADMIT Internal Medicine
PROC: 0H9LXZZ Drainage of Left Lower Leg Skin, External Approach (ICD-10-PCS; 2024-05-27)
PROC: 5A09357 Assistance with Respiratory Ventilation, Less than 24 Consecutive Hours, Continuous Positive Airway Pressure (ICD-10-PCS; 2024-05-27)
PROC: 3E03329 Introduction of Other Anti-infective into Peripheral Vein, Percutaneous Approach (ICD-10-PCS; 2024-05-27)
PROC: 0LBT0ZZ Excision of Left Ankle Tendon, Open Approach (ICD-10-PCS; 2024-05-30)
PROC: 0LBP0ZZ Excision of Left Lower Leg Tendon, Open Approach (ICD-10-PCS; principal; 2024-05-30 09:00)
DX: A41.02 Sepsis due to Methicillin resistant Staphylococcus aureus (principal); L02.416 Cutaneous abscess of left lower limb; Z68.44 Body mass index [BMI] 60.0-69.9, adult; N17.9 Acute kidney failure, unspecified; L03.116 Cellulitis of left lower limb; I12.9 Hypertensive chronic kidney disease with stage 1 through stage 4 chronic kidney disease, or unspecified chronic kidney disease; N18.31 Chronic kidney disease, stage 3a; D63.1 Anemia in chronic kidney disease; G89.29 Other chronic pain; M54.9 Dorsalgia, unspecified; M54.2 Cervicalgia; F41.8 Other specified anxiety disorders; E66.01 Morbid (severe) obesity due to excess calories; Z90.710 Acquired absence of both cervix and uterus; Z90.49 Acquired absence of other specified parts of digestive tract; Z79.82 Long term (current) use of aspirin; Z79.899 Other long term (current) drug therapy; K21.9 Gastro-esophageal reflux disease without esophagitis; G47.33 Obstructive sleep apnea (adult) (pediatric)
CPT/HCPCS: 0241U; 10061; 36415; 73590; 73701; 80048; 80053; 80202; 83605; 85025; 86140; 87040; 87070; 87075; 87077; 87147; 87186; 87205; 94761; 94762; 96374-59; 96375-59; 99284-25; A9270; C1751; J1171; J1650; J1885; J2270; J2405; J2543; J2704; J2765; J3010; J3370; J7030; J7040; J7050; J7120; Q9967

== ENCOUNTER → 2024-05-26 | Outpatient (CLI) | payer OTHER ==
[~2024-05-26] MED LIST changes: +ALBU90OI INH; +Adipex-P37.5 M1 PO; +CLIN300 PO; +FURO20 PO; +Lotrimin AF113 GM TOP; +MIRALAX17 GM PO; +OSEL75CA PO; +POTA10T PO; +VITAMIN D5000 UNIT PO; +ZYRTEC10 M2 PO
[2024-05-26 14:03] LABS: BASOPHILS ABSOLUTE AUTO 0.04 K/mm3 (0.00-0.23); BASOPHILS PERCENT AUTO 0 % (0-2); EOSINOPHILS ABSOLUTE AUTO 0.55 K/mm3 (0.00-0.68); EOSINOPHILS PERCENT AUTO 4 % (0-6); Hematocrit 38.1 % (33.0-51.0); IMMATURE GRAN ABSOLUTE AUTO 0.08 K/mm3 (0.00-0.10); IMMATURE GRAN PERCENT AUTO 1 % (0-1); LYMPHOCYTES ABSOLUTE AUTO 1.02 K/mm3 (0.84-5.20); LYMPHOCYTES PERCENT AUTO 7 % (21-46); MONOCYTES ABSOLUTE AUTO 0.97 K/mm3 (0.16-1.47); MONOCYTES PERCENT AUTO 6 % (4-13); Mean Corpuscular HGB 27.4 pg (26.0-34.0); Mean Corpuscular HGB Conc 31.5 g/dL (31.5-36.5); Mean Corpuscular Volume 87 fL (80-100); Mean Platelet Volume 9.5 fL (9.1-12.4); NEUTROPHILS ABSOLUTE AUTO 12.87 K/mm3 (1.96-9.15); NEUTROPHILS PERCENT AUTO 83 % (41-73); Platelet Count 441 K/mm3 (150-400); RDW Coefficient Variation 14.6 % (11.7-14.2); RDW Standard Deviation 46.5 fL (35.1-46.3); Red Blood Cell Count 4.38 M/mm3 (3.80-5.20); White Blood Cell Count 15.53 K/mm3 (4.00-11.30)
[2024-05-26 14:13] LABS: Albumin, Blood 3.2 g/dL (3.4-5.0); Albumin/Globulin Ratio 0.5 (0.8-1.8); Bilirubin, Total 0.5 mg/dL (0.1-1.0); Bun/Creatinine Ratio 15.1 (12.0-20.0); Calcium, Blood 8.9 mg/dL (8.5-10.1); Creatinine, Blood 1.46 mg/dL (0.40-1.00); Potassium, Blood 3.8 mmol/L (3.5-5.5); Total Protein, Blood 9.2 g/dL (6.4-8.2)
== END | disposition home or self-care (01) ==
LOC: LAB SHORT 13:53 → LAB 13:53
PROVIDERS: Emergency Medicine
DX: L03.116 Cellulitis of left lower limb (principal)
CPT/HCPCS: 80053; 83605; 85025; 87040

== ENCOUNTER 2024-06-09 05:16 | Day surgery (SDC) | payer OTHER ==
[~2024-06-09 05:16] MED LIST changes: +ALBU90OI INH; +Adipex-P37.5 M1 PO; +CLIN300 PO; +FURO20 PO; +Lotrimin AF113 GM TOP; +MIRALAX17 GM PO; +OSEL75CA PO; +POTA10T PO; +VITAMIN D5000 UNIT PO; +ZYRTEC10 M2 PO
== END 2024-06-09 23:00 | disposition home or self-care (01) ==
LOC: WOUND 05:16
DX: L03.116 Cellulitis of left lower limb (principal); I87.312 Chronic venous hypertension (idiopathic) with ulcer of left lower extremity; E11.51 Type 2 diabetes mellitus with diabetic peripheral angiopathy without gangrene; E11.622 Type 2 diabetes mellitus with other skin ulcer; L97.822 Non-pressure chronic ulcer of other part of left lower leg with fat layer exposed; I87.2 Venous insufficiency (chronic) (peripheral); E66.01 Morbid (severe) obesity due to excess calories; G47.30 Sleep apnea, unspecified
CPT/HCPCS: G0463

== ENCOUNTER 2024-06-15 04:36 | Day surgery (SDC) | payer OTHER ==
[2024-06-15] MEDS ORDERED: Lidocaine HCl 4% Cream 5 GM ONE (10:42)
== END 2024-06-15 23:00 | disposition home or self-care (01) ==
LOC: WOUND 04:36
DX: I87.312 Chronic venous hypertension (idiopathic) with ulcer of left lower extremity (principal); E11.622 Type 2 diabetes mellitus with other skin ulcer; L97.822 Non-pressure chronic ulcer of other part of left lower leg with fat layer exposed; I87.2 Venous insufficiency (chronic) (peripheral); R60.0 Localized edema; I73.9 Peripheral vascular disease, unspecified; L03.116 Cellulitis of left lower limb; E66.01 Morbid (severe) obesity due to excess calories
CPT/HCPCS: A6213; A9270

== ENCOUNTER 2024-06-22 00:59 | Day surgery (SDC) | payer OTHER ==
[2024-06-22] MEDS ORDERED: Lidocaine HCl 4% Cream 5 GM ONE (09:26)
== END 2024-06-22 23:00 | disposition home or self-care (01) ==
LOC: WOUND 00:59
DX: L03.116 Cellulitis of left lower limb (principal); I87.2 Venous insufficiency (chronic) (peripheral); E11.51 Type 2 diabetes mellitus with diabetic peripheral angiopathy without gangrene; G47.30 Sleep apnea, unspecified; E66.01 Morbid (severe) obesity due to excess calories; Z68.44 Body mass index [BMI] 60.0-69.9, adult
CPT/HCPCS: A6213; A9270

== ENCOUNTER → 2024-06-29 | Day surgery (SDC) | payer OTHER ==
[~2024-06-29] MED LIST changes: +Lidocaine HCl 4% Cream 5 GM ONE
== END ==
LOC: WOUND 04:49
DX: L03.116 Cellulitis of left lower limb (principal); I87.2 Venous insufficiency (chronic) (peripheral); E11.51 Type 2 diabetes mellitus with diabetic peripheral angiopathy without gangrene; G47.30 Sleep apnea, unspecified; E66.01 Morbid (severe) obesity due to excess calories; Z68.44 Body mass index [BMI] 60.0-69.9, adult
CPT/HCPCS: A6213; A9270

== ENCOUNTER 2024-07-06 01:31 | Day surgery (SDC) | payer OTHER ==
[~2024-07-06 01:31] MED LIST changes: -Lidocaine HCl 4% Cream 5 GM ONE
[2024-07-06] MEDS ORDERED: Lidocaine HCl 4% Cream 5 GM ONE (08:51)
== END 2024-07-06 23:00 | disposition home or self-care (01) ==
LOC: WOUND 01:31
DX: Z00.00 Encounter for general adult medical examination without abnormal findings (principal); Z11.4 Encounter for screening for human immunodeficiency virus [HIV]; Z11.59 Encounter for screening for other viral diseases; L03.116 Cellulitis of left lower limb; I87.312 Chronic venous hypertension (idiopathic) with ulcer of left lower extremity; L97.822 Non-pressure chronic ulcer of other part of left lower leg with fat layer exposed; I87.2 Venous insufficiency (chronic) (peripheral); I73.9 Peripheral vascular disease, unspecified; E55.9 Vitamin D deficiency, unspecified; E78.5 Hyperlipidemia, unspecified
CPT/HCPCS: 36415; 80053; 80061; 82306; 84443; A6213; A9270

== ENCOUNTER 2024-07-13 02:10 | Day surgery (SDC) | payer OTHER ==
[2024-07-13] MEDS ORDERED: Lidocaine HCl 4% Cream 5 GM ONE (08:29)
== END 2024-07-13 23:00 | disposition home or self-care (01) ==
LOC: WOUND 02:10
DX: L03.116 Cellulitis of left lower limb (principal); I87.312 Chronic venous hypertension (idiopathic) with ulcer of left lower extremity; I87.2 Venous insufficiency (chronic) (peripheral); I73.9 Peripheral vascular disease, unspecified
CPT/HCPCS: A6213; A9270

== ENCOUNTER 2024-07-19 01:49 | Day surgery (SDC) | payer OTHER ==
[2024-07-19] MEDS ORDERED: Lidocaine HCl 4% Cream 5 GM ONE (08:38)
== END 2024-07-19 23:00 | disposition home or self-care (01) ==
LOC: WOUND 01:49
DX: L03.116 Cellulitis of left lower limb (principal); I87.312 Chronic venous hypertension (idiopathic) with ulcer of left lower extremity; I87.2 Venous insufficiency (chronic) (peripheral); I73.9 Peripheral vascular disease, unspecified
CPT/HCPCS: A9270; G0463

== ENCOUNTER 2024-11-05 14:34 | Emergency (ER) | payer OTHER ==
[~2024-11-05] VITALS: Ht 167.6 cm; Wt 181.4 kg
[2024-11-05 15:32] LABS: BASOPHILS ABSOLUTE AUTO 0.03 K/mm3 (0.00-0.23); BASOPHILS PERCENT AUTO 0 % (0-2); EOSINOPHILS ABSOLUTE AUTO 0.46 K/mm3 (0.00-0.68); EOSINOPHILS PERCENT AUTO 5 % (0-6); Hemoglobin 14.2 g/dL (11.5-16.0); IMMATURE GRAN ABSOLUTE AUTO 0.02 K/mm3 (0.00-0.10); IMMATURE GRAN PERCENT AUTO 0 % (0-1); LYMPHOCYTES ABSOLUTE AUTO 1.58 K/mm3 (0.84-5.20); LYMPHOCYTES PERCENT AUTO 18 % (21-46); MONOCYTES ABSOLUTE AUTO 0.77 K/mm3 (0.16-1.47); MONOCYTES PERCENT AUTO 9 % (4-13); Mean Corpuscular HGB 27.6 pg (26.0-34.0); Mean Corpuscular HGB Conc 32.3 g/dL (31.5-36.5); Mean Corpuscular Volume 85 fL (80-100); NEUTROPHILS PERCENT AUTO 68 % (41-73); Platelet Count 282 K/mm3 (150-400); RDW Standard Deviation 47.3 fL (35.1-46.3); Red Blood Cell Count 5.15 M/mm3 (3.80-5.20); White Blood Cell Count 8.96 K/mm3 (4.00-11.30)
[2024-11-05 15:38] LABS: Influenza A, PCR NEGATIVE (NEGATIVE); Influenza B, PCR NEGATIVE (NEGATIVE); Resp Syncytial Virus, PCR NEGATIVE (NEGATIVE); SARS-Cov-2 (COVID-19) PCR, MMC NEGATIVE (NEGATIVE)
[2024-11-05 15:46] LABS: Albumin, Blood 3.5 g/dL (3.4-5.0); Albumin/Globulin Ratio 0.7 (0.8-1.8); Bilirubin, Total 0.5 mg/dL (0.1-1.0); Bun/Creatinine Ratio 14.4 (12.0-20.0); Calcium, Blood 9.3 mg/dL (8.5-10.1); Creatinine, Blood 1.18 mg/dL (0.40-1.00); Globulin, Blood 5.3 g/dL (2.2-4.0); Potassium, Blood 3.9 mmol/L (3.5-5.5); Total Protein, Blood 8.8 g/dL (6.4-8.2)
[2024-11-05] MEDS ORDERED: Ipratropium/Albuterol SulF 2.5-0.5MG/3 ML Amp INH ONE (18:00)
[2024-11-05] MEDS ORDERED: NS 1,000 ML IV SCH (18:00)
[2024-11-05] MEDS ORDERED: Ondansetron HCl 2 MG / ML 2ML Vial IV ONE (18:00)
[2024-11-05] MEDS ORDERED: CEPH500 PO (19:08)
[2024-11-05] MEDS ORDERED: ONDA4ODT MM (19:08)
[2024-11-05] MEDS ORDERED: Cephalexin Monohydrate 500 MG Cap PO ONE (19:10)
[2024-11-05] MEDS ORDERED: RX Prepack 2 Tabs Ondansetron ODT 4MG UD ONE (19:10)
[2024-11-05 19:15] VITALS: BP 162/61
== END 2024-11-05 19:37 | disposition home or self-care (01) ==
LOC: ER 14:34
PROVIDERS: Student in an Organized Health Care Education/Training Program
DX: B34.9 Viral infection, unspecified (principal); L03.115 Cellulitis of right lower limb; G47.33 Obstructive sleep apnea (adult) (pediatric); I12.9 Hypertensive chronic kidney disease with stage 1 through stage 4 chronic kidney disease, or unspecified chronic kidney disease; N18.30 Chronic kidney disease, stage 3 unspecified; F17.210 Nicotine dependence, cigarettes, uncomplicated; Z79.2 Long term (current) use of antibiotics; Z79.899 Other long term (current) drug therapy
CPT/HCPCS: 0241U; 71046; 80053; 85025; 93005; 93010; 96374; 99284-25; A9270; J2405; J7030

== ENCOUNTER 2024-12-18 21:37 | Emergency (ER) | payer OTHER ==
[~2024-12-18] VITALS: Ht 160 cm; Wt 163.3 kg
[~2024-12-18 21:37] MED LIST changes: +CEPH500 PO; +ONDA4ODT MM
[2024-12-18 22:14] LABS: BASOPHILS ABSOLUTE AUTO 0.04 K/mm3 (0.00-0.23); BASOPHILS PERCENT AUTO 0 % (0-2); EOSINOPHILS ABSOLUTE AUTO 0.33 K/mm3 (0.00-0.68); EOSINOPHILS PERCENT AUTO 2 % (0-6); Hematocrit 37.5 % (33.0-51.0); Hemoglobin 11.9 g/dL (11.5-16.0); IMMATURE GRAN ABSOLUTE AUTO 0.05 K/mm3 (0.00-0.10); IMMATURE GRAN PERCENT AUTO 0 % (0-1); LYMPHOCYTES ABSOLUTE AUTO 1.46 K/mm3 (0.84-5.20); LYMPHOCYTES PERCENT AUTO 11 % (21-46); MONOCYTES ABSOLUTE AUTO 1.21 K/mm3 (0.16-1.47); MONOCYTES PERCENT AUTO 9 % (4-13); Mean Corpuscular HGB Conc 31.7 g/dL (31.5-36.5); Mean Corpuscular Volume 86 fL (80-100); NEUTROPHILS ABSOLUTE AUTO 10.52 K/mm3 (1.96-9.15); NEUTROPHILS PERCENT AUTO 77 % (41-73); NRBC ABSOLUTE 0.00 K/mm3 (0.00-0.02); NRBC Auto 0.0 /100 WBC (0.0-0.2); Platelet Count 298 K/mm3 (150-400); RDW Coefficient Variation 14.8 % (11.7-14.2); RDW Standard Deviation 47.4 fL (35.1-46.3)
[2024-12-18 22:33] LABS: Alanine Aminotransfer (ALT/SGP 40.0 U/L (12-78); Albumin, Blood 2.9 g/dL (3.4-5.0); Albumin/Globulin Ratio 0.6 (0.8-1.8); Anion Gap 8.0 mmol/L (3-11); Aspartate Aminotrans (AST/SGOT 22.0 U/L (12-37); Bilirubin, Total 0.9 mg/dL (0.1-1.0); Blood Urea Nitrogen 17.0 mg/dL (8-24); CO2, Blood 23.0 mmol/L (21-32); Calcium, Blood 8.8 mg/dL (8.5-10.1); Chloride, Blood 106.0 mmol/L (98-108); Creatinine, Blood 1.23 mg/dL (0.40-1.00); Globulin, Blood 4.9 g/dL (2.2-4.0); Glucose, Blood 113.0 mg/dL (70-99); Potassium, Blood 3.2 mmol/L (3.5-5.5); Sodium, Blood 134.0 mmol/L (136-145); Total Protein, Blood 7.8 g/dL (6.4-8.2)
[2024-12-18] MEDS ORDERED: CefTRIAXone Sodium 2,000 MG in NS 100 ML IV ONE (23:20)
[2024-12-18] MEDS ORDERED: Ketorolac Tromethamine 30mg Vial IV ONE (23:20)
[2024-12-18] MEDS ORDERED: Trimethoprim/Sulfamethoxazole DS Tab PO ONE (23:50)
[2024-12-18] MEDS ORDERED: CEPH500 PO (23:51)
[2024-12-18] MEDS ORDERED: Bactrim Ds Tab1 EACH PO (23:51)
[2024-12-19 02:06] VITALS: BP 134/72
== END 2024-12-19 03:30 | disposition home or self-care (01) ==
LOC: ER 21:37
PROVIDERS: Emergency Medicine
DX: L03.116 Cellulitis of left lower limb (principal); G47.30 Sleep apnea, unspecified; I12.9 Hypertensive chronic kidney disease with stage 1 through stage 4 chronic kidney disease, or unspecified chronic kidney disease; N18.30 Chronic kidney disease, stage 3 unspecified; I69.354 Hemiplegia and hemiparesis following cerebral infarction affecting left non-dominant side; F17.210 Nicotine dependence, cigarettes, uncomplicated; E66.01 Morbid (severe) obesity due to excess calories; Z68.44 Body mass index [BMI] 60.0-69.9, adult; Z79.82 Long term (current) use of aspirin; Z79.899 Other long term (current) drug therapy
CPT/HCPCS: 36415; 80053; 82550; 83605; 85025; 87040; 93005; 93010; 93971; 96365; 96375; 99284-25; J0696; J1885

== ENCOUNTER 2024-12-28 03:22 | Day surgery (SDC) | payer OTHER ==
[~2024-12-28 03:22] MED LIST changes: +Bactrim Ds Tab1 EACH PO
[2024-12-28] MEDS ORDERED: Lidocaine HCl 4% Cream 5 GM ONE (07:44)
== END 2024-12-28 23:00 | disposition home or self-care (01) ==
LOC: WOUND 03:22
DX: I87.312 Chronic venous hypertension (idiopathic) with ulcer of left lower extremity (principal); L97.822 Non-pressure chronic ulcer of other part of left lower leg with fat layer exposed; R60.0 Localized edema; I87.2 Venous insufficiency (chronic) (peripheral); F17.210 Nicotine dependence, cigarettes, uncomplicated; J45.909 Unspecified asthma, uncomplicated; G47.30 Sleep apnea, unspecified; I10 Essential (primary) hypertension; M19.90 Unspecified osteoarthritis, unspecified site; E78.00 Pure hypercholesterolemia, unspecified; I27.20 Pulmonary hypertension, unspecified
CPT/HCPCS: A6213; A9270

== ENCOUNTER 2025-01-04 03:29 | Day surgery (SDC) | payer OTHER ==
[2025-01-04] MEDS ORDERED: Lidocaine HCl 4% Cream 5 GM ONE (07:54)
== END 2025-01-04 23:00 | disposition home or self-care (01) ==
LOC: WOUND 03:29
DX: E11.622 Type 2 diabetes mellitus with other skin ulcer (principal); L97.822 Non-pressure chronic ulcer of other part of left lower leg with fat layer exposed; I87.312 Chronic venous hypertension (idiopathic) with ulcer of left lower extremity; I87.2 Venous insufficiency (chronic) (peripheral); E66.01 Morbid (severe) obesity due to excess calories; Z68.44 Body mass index [BMI] 60.0-69.9, adult
CPT/HCPCS: A6213; A9270

== ENCOUNTER 2025-01-11 01:44 | Day surgery (SDC) | payer OTHER ==
[2025-01-11] MEDS ORDERED: Lidocaine HCl 4% Cream 5 GM ONE (07:56)
[2025-01-11] MEDS ORDERED: Miconazole Nitrate 2% 85 GM PWD ONE (08:29)
== END 2025-01-11 23:00 | disposition home or self-care (01) ==
LOC: WOUND 01:44
DX: I87.312 Chronic venous hypertension (idiopathic) with ulcer of left lower extremity (principal); L97.822 Non-pressure chronic ulcer of other part of left lower leg with fat layer exposed; I87.2 Venous insufficiency (chronic) (peripheral); R60.0 Localized edema
CPT/HCPCS: A6213; A9270

== ENCOUNTER 2025-01-25 01:51 | Day surgery (SDC) | payer OTHER | END 2025-01-25 23:00 | disposition home or self-care (01) | LOC: WOUND 01:51 | DX: I87.312 Chronic venous hypertension (idiopathic) with ulcer of left lower extremity (principal); L97.822 Non-pressure chronic ulcer of other part of left lower leg with fat layer exposed; R60.0 Localized edema; I87.2 Venous insufficiency (chronic) (peripheral); Z87.828 Personal history of other (healed) physical injury and trauma | CPT/HCPCS: G0463 ==